=== PATIENT | female | born 1995 | race African-American/Black ===

== ENCOUNTER 2020-01-26 22:05 | Emergency (ER) | payer OTHER ==
[2020-01-26 22:14] VITALS: BP 137/82
[2020-01-26] MEDS ORDERED: KETOROLAC 60 MG/2 ML VIAL (J1885) IM ONE (22:30)
--- NOTE | 2020-01-27 07:53 | REP ---
AP pelvis: There is no pelvic fracture. Mineralization is normal. There are no calcifications or foreign bodies. These sacroiliac articulations and hip articulations are unremarkable. Impression: Negative AP pelvis. Right hip two views: Mineralization and joint space are normal. There is no femoral head deformity. There is no fracture or dislocation. No calcifications or foreign bodies. Impression: Negative right hip. Electronically Signed by Demetris Thibodeaux MD 01/27/2020 07:44 A
== END 2020-01-27 | disposition home or self-care (01) ==
LOC: M ED 22:05
DX: S70.01XA Contusion of right hip, initial encounter (principal); W00.0XXA Fall on same level due to ice and snow, initial encounter; Y92.410 Unspecified street and highway as the place of occurrence of the external cause; Y93.01 Activity, walking, marching and hiking; Y99.1 Military activity
CPT/HCPCS: 73502; 96372; 99283; J1885

== ENCOUNTER 2020-08-08 11:26 | Emergency (ER) | payer OTHER ==
[~2020-08-08] VITALS: Ht 162.6 cm; Wt 58.4 kg
[2020-08-08] MEDS ORDERED: ACET1TAB55 PO (11:32)
[2020-08-08] MEDS ORDERED: PREN1CHW PO (11:32)
[2020-08-08 12:16] LABS: BASO % 0.3 % (0.0-1.0); EOS # 0.1 10^3/uL (0.0-0.5); EOS % 1.1 % (0.0-3.0); HEMATOCRIT 32.3 % (36.0-47.0); HEMOGLOBIN 10.7 g/dl (12.0-15.5); LYMPH # 1.7 10^3/uL (1.5-5.0); LYMPH % 16.1 % (24.0-44.0); MEAN CORPUSCULAR HEMOGLOBIN 30.7 pg (27.0-33.0); MEAN CORPUSCULAR HGB CONC 33.1 g/dl (32.0-36.5); MEAN CORPUSCULAR VOLUME 92.6 fl (80.0-96.0); MONO # 0.8 10^3/uL (0.0-0.8); MONO % 7.4 % (0.0-5.0); NEUTROPHILS # 7.9 10^3/uL (1.5-8.5); PLATELET COUNT, AUTOMATED 234 10^3/uL (150-450); RED BLOOD COUNT 3.49 10^6/uL (4.00-5.40); WHITE BLOOD COUNT 10.7 10^3/uL (4.0-10.0)
[2020-08-08 12:28] LABS: APPEARANCE, URINE HAZY (CLEAR); BACTERIA, URINE AUTO NEGATIVE (NEGATIVE); BILIRUBIN, URINE AUTO NEGATIVE (NEGATIVE); BLOOD, URINE BLOOD NEGATIVE (NEGATIVE); COLOR, URINE YELLOW (YELLOW); GLUCOSE, URINE (UA) AUTO 3+ mg/dL (NEGATIVE); KETONE, URINE AUTO TRACE mg/dL (NEGATIVE); LEUKOCYTE ESTERASE, URINE AUTO NEGATIVE (NEGATIVE); MUCUS, URINE SMALL (NEGATIVE); NITRITE, URINE AUTO NEGATIVE (NEGATIVE); PROTEIN, URINE AUTO NEGATIVE (NEGATIVE); RBC, URINE AUTO 1 /HPF (0-3); SPECIFIC GRAVITY URINE AUTO 1.023 (1.002-1.035); SQUAMOUS EPITHELIAL CELL UR AU 2 /HPF (0-6); UROBILINOGEN, URINE AUTO 0.2 mg/dL (0.0-2.0); WBC, URINE AUTO 3 /HPF (0-3)
[2020-08-08 12:35] LABS: ALBUMIN 3.5 GM/DL (3.2-5.2); ALT/SGPT 32 U/L (12-78); BILIRUBIN,TOTAL 0.4 MG/DL (0.2-1.0); BLOOD UREA NITROGEN 9 MG/DL (7-18); CALCIUM LEVEL 9.2 MG/DL (8.5-10.1); CARBON DIOXIDE LEVEL 26 MEQ/L (21-32); CHLORIDE LEVEL 106 MEQ/L (98-107); CREATININE FOR GFR 0.58 MG/DL (0.55-1.30); GLOMERULAR FILTRATION RATE > 60.0 (>60); GLUCOSE, FASTING 60 MG/DL (70-100); SODIUM LEVEL 135 MEQ/L (136-145)
[2020-08-08 14:02] VITALS: BP 106/65
--- NOTE | 2020-08-08 14:16 | REPVR ---
PROCEDURE INFORMATION: Exam: US , Limited Exam date and time: 08/08/2020 1:24 PM Age: 24 years old Clinical indication: complicated by abdominal or pelvic pain; Right lower quadrant; Second trimester; Gestational age or lmp: 19 weeks; ; Additional info: 19wks with rlq pain TECHNIQUE: Imaging protocol: Real-time ultrasound of the maternal uterus with image documentation. Exam focused on the clinical indication. COMPARISON: No relevant prior studies available. FINDINGS: Gestation: Intrauterine gestation. Transverse presentation. heart rate: Heart rate measures 165 beats per Min. Placenta: Anterior grade 1 placenta. No placenta previa. Amniotic fluid: Amniotic fluid appears within normal limits. ANATOMICAL SURVEY: anatomy: Both feet were identified. Both upper extremities were identified. No hydronephrosis. Fluid within the stomach and urinary bladder. Normal-appearing choroid plexus. Lateral ventricles are normal in diameter. heart: Four-chamber heart. Umbilical cord: Three vessel umbilical cord. Normal umbilical cord insertion. BIOMETRY: Gestational age (AUA): Estimated gestational age is 19 weeks and 5 days. Estimated due date (AUA): Estimated date of delivery is December 28, 2020. Estimated weight: Estimated weight is 292 g (62%) Biparietal diameter: Biparietal diameter measures 19 weeks 6 days. Head circumference: Head circumference measures 19 weeks 4 days. Cerebellum diameter: Cerebellar diameter measures 1.9 cm. Abdominal circumference: Abdominal circumference measures 19 weeks 1 day. Humerus length: Humerus length measures 20 weeks 1 day. Femur length: Femur length measures 19 weeks 6 days. MATERNAL: Cervix: Cervix is closed, measuring 3.0 cm in length. Right adnexa: Right ovary measures 2.8 x 1.7 x 2.0 cm. Left adnexa: Left ovary was not identified, likely obscured by overlying bowel gas. IMPRESSION: 1. Single viable intrauterine gestation in transverse presentation. No abnormality is identified. 2. Estimated gestational age is 19 weeks and 5 days. Electronically signed by: Clarice Cash On 08/08/2020 14:16:05 PM
== END 2020-08-08 14:30 | disposition home or self-care (01) ==
LOC: M ED 11:26
DX: O26.892 Other specified pregnancy related conditions, second trimester (principal); Z3A.19 19 weeks gestation of pregnancy; R81 Glycosuria

== ENCOUNTER 2020-10-12 09:55 | Emergency (ER) | payer OTHER ==
[~2020-10-12] VITALS: Ht 162.6 cm; Wt 60.3 kg
[~2020-10-12 09:55] MED LIST: ACET1TAB55 PO; PREN1CHW PO
[2020-10-12] MEDS ORDERED: OMEP40CA97 PO (10:04)
[2020-10-12] MEDS ORDERED: NS 1,000 ML IV ONE (10:45)
[2020-10-12 11:09] LABS: BASO % 0.3 % (0.0-1.0); EOS # 0.1 10^3/uL (0.0-0.5); HEMATOCRIT 35.4 % (36.0-47.0); HEMOGLOBIN 11.3 g/dl (12.0-15.5); LYMPH # 1.1 10^3/uL (1.5-5.0); LYMPH % 13.4 % (24.0-44.0); MEAN CORPUSCULAR HGB CONC 31.9 g/dl (32.0-36.5); MEAN CORPUSCULAR VOLUME 93.9 fl (80.0-96.0); MONO # 0.6 10^3/uL (0.0-0.8); NEUTROPHILS # 5.8 10^3/uL (1.5-8.5); NEUTROPHILS % 73.5 % (36.0-66.0); PLATELET COUNT, AUTOMATED 227 10^3/uL (150-450); RED BLOOD COUNT 3.77 10^6/uL (4.00-5.40); WHITE BLOOD COUNT 7.9 10^3/uL (4.0-10.0)
[2020-10-12 11:45] LABS: ALBUMIN 3.2 GM/DL (3.2-5.2); ALT/SGPT 55 U/L (12-78); BILIRUBIN,DIRECT 0.2 MG/DL (0.0-0.2); BILIRUBIN,TOTAL 0.8 MG/DL (0.2-1.0); BLOOD UREA NITROGEN 10 MG/DL (7-18); CARBON DIOXIDE LEVEL 22 MEQ/L (21-32); CHLORIDE LEVEL 103 MEQ/L (98-107); CK-MB VALUE MASS < 1.0 NG/ML (<3.6); CPK CREATINE PHOSPHOKINASE 49 U/L (26-192); CREATININE FOR GFR 0.69 MG/DL (0.55-1.30); FREE T4 0.99 NG/DL (0.76-1.46); GLOMERULAR FILTRATION RATE > 60.0 (>60); GLUCOSE, FASTING 72 MG/DL (70-100); LIPASE 155 U/L (73-393); MB/CK RELATIVE INDEX 2.04 (< OR =4); POTASSIUM SERUM 3.4 MEQ/L (3.5-5.1); SODIUM LEVEL 135 MEQ/L (136-145); TOTAL PROTEIN 7.3 GM/DL (6.4-8.2); TROPONIN I < 0.02 NG/ML (< 0.10)
[2020-10-12] MEDS ORDERED: ONDANSETRON 4MG/2ML VIAL IV ONE (14:00)
[2020-10-12] MEDS ORDERED: ONDA4TAB6 PO (14:46)
[2020-10-12] MEDS ORDERED: KEFL500C17 PO (14:46)
[2020-10-12] MEDS ORDERED: POTASSIUM CHLORIDE 10 MEQ SR TABLET PO ONE (15:30)
[2020-10-12 15:35] VITALS: BP 133/73
--- NOTE | 2020-10-12 19:25 | ECGEPIP ---
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
== END 2020-10-12 15:39 | disposition home or self-care (01) ==
LOC: M ED 09:55
DX: O23.43 Unspecified infection of urinary tract in pregnancy, third trimester (principal); O99.283 Endocrine, nutritional and metabolic diseases complicating pregnancy, third trimester; R82.71 Bacteriuria; E87.6 Hypokalemia; O21.9 Vomiting of pregnancy, unspecified; O99.613 Diseases of the digestive system complicating pregnancy, third trimester; R19.7 Diarrhea, unspecified; K21.9 Gastro-esophageal reflux disease without esophagitis; Z3A.28 28 weeks gestation of pregnancy; Z86.19 Personal history of other infectious and parasitic diseases; Z79.899 Other long term (current) drug therapy
CPT/HCPCS: 80048; 80076; 81001; 82550; 82553; 83690; 84439; 84443; 84484; 85025; 87086; 87507; 93005; 96361; 96374; 99284; J2405

== ENCOUNTER 2020-11-09 10:23 | Inpatient (IN) | payer OTHER ==
[2020-11-09] VITALS (17 sets, daily range): BP systolic 100–149; BP diastolic 56–94
[~2020-11-09] VITALS: Ht 162.6 cm; Wt 60.2 kg
[~2020-11-09 10:23] MED LIST changes: +KEFL500C17 PO; +OMEP40CA97 PO; +ONDA4TAB6 PO
[2020-11-09] MEDS ORDERED: LACTATED RINGER'S 1000 ML IV STA (11:37)
[2020-11-09] MEDS ORDERED: PENICILLIN G POTASSIUM IV 5 MU in D5W MINI-BAG PLUS 100 ML IV ONE (11:45)
[2020-11-09] MEDS ORDERED: CALCIUM GLUCONATE 1,000 MG in D5W MINI-BAG PLUS 100 ML IV PRN (11:45)
[2020-11-09] MEDS ORDERED: MAG Sulf (L&D) 4 GM/100 ML 4 GM in IV 1 EA IV ONE (11:45)
[2020-11-09] MEDS ORDERED: MAGNESIUM *L&D* 4GM/100ML BAG (40MG/ML) As Ordered ONE (11:56)
[2020-11-09] MEDS: BETAMETHASONE SOLUSPAN 6MG/ML 5ML VIAL (J0702 PER 3MG) IM SCH (12:13)
[2020-11-09 12:20] LABS: BASO % 0.2 % (0.0-1.0); EOS # 0.1 10^3/uL (0.0-0.5); EOS % 1.1 % (0.0-3.0); HEMATOCRIT 34.4 % (36.0-47.0); HEMOGLOBIN 11.2 g/dl (12.0-15.5); LYMPH # 1.6 10^3/uL (1.5-5.0); LYMPH % 16.6 % (24.0-44.0); MEAN CORPUSCULAR HEMOGLOBIN 29.8 pg (27.0-33.0); MEAN CORPUSCULAR HGB CONC 32.6 g/dl (32.0-36.5); MEAN CORPUSCULAR VOLUME 91.5 fl (80.0-96.0); MONO # 0.7 10^3/uL (0.0-0.8); MONO % 7.4 % (0.0-5.0); NEUTROPHILS # 7.2 10^3/uL (1.5-8.5); NEUTROPHILS % 73.5 % (36.0-66.0); PLATELET COUNT, AUTOMATED 217 10^3/uL (150-450); RED BLOOD COUNT 3.76 10^6/uL (4.00-5.40); WHITE BLOOD COUNT 9.8 10^3/uL (4.0-10.0)
[2020-11-09] MEDS: MAG Sulf (OBGYN) 20GM/500ML 20,000 MG in IV 1 EA IV SCH ×2 (12:37→21:37)
[2020-11-09] MEDS: LR 1,000 ML IV SCH ×2 (13:05→21:37)
--- NOTE | 2020-11-09 13:08 | REP ---
INDICATION: with growth u/s at bedside. COMPARISON: 08/08/2020. TECHNIQUE: Real-time sonographic evaluation of the gravid uterus performed. FINDINGS: Estimated gestational age is32 weeks 3 days, EDC 01/01/2021. Today's measurements indicate appropriate growth. Presentation: Cephalic Placenta anterior, grade 2, without evidence of placenta previa. heart rate is recorded at 133 beats per minute. Amniotic fluid is subjectively normal. RICK equals 16.4, normal range 8.5-24.3. Biometry chart: BPD: 81 mm, 32 weeks 5 days, 54th percentile. HC: 294 mm, 32 weeks 3 days, 51st percentile AC: 283 mm, 32 weeks 2 days, 49th percentile Femur length: 62 mm, 32 weeks 1 days, 45th percentile HC to AC ratio: 1.04, normal range 4.95-1.14. Estimated weight: 1946g, 53rd percentile. SD ratio umbilical artery 2.51, normal 1.82-3.83. RI 0.60, normal 0.49-0.75. anatomy: Cranium: Previously seen Lateral Ventricles/Choroid Plexus: Previously seen Posterior Fossa/Cerebellum: Previously seen Nose/lips/profile: Previously seen Four chamber heart: Grossly normal Right ventricular outflow tract: Previously seen Left ventricular outflow tract: Previously seen Left-sided stomach: Grossly normal Kidneys: Grossly normal Bladder: Grossly normal Cord Insertion: Grossly normal 3 vessel cord: Grossly normal Spine: Not well visualized IMPRESSION: Viable single intrauterine gestation as above. <Electronically signed by Demetris Quiroz > 11/09/20 [id number]
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
[2020-11-09] MEDS ORDERED: NIFEdipine 10 MG CAP PO ONE (14:00)
--- NOTE | 2020-11-09 14:27 | IPNPDOC ---
Obstetrical Progress Note Date of Service Nov 09, 2020 Subjective No active bleeding currently, resting comfortably Objective Vital Signs Date Time Temp Pulse Resp B/P (MAP) Pulse Ox O2 Delivery O2 Flow Rate FiO2 11/09/20 11:13 98.0 110 16 Room Air Assessment Heart Rate (FHR): 130 Variability: Moderate Accelerations: Positive Decelerations: None Heart Rate Tracing: Category I Tocometer Contractions: Yes Frequency: regular, every 2-5 min. Duration: greater than 60 seconds Strength: palpated as mild, resting tone palp/soft Assessment and Plan Age: 25 : 1 Term: 0 Pre-term: 0 Abortions: 0 Livin EGA at Admission: 0 Weeks & Days 32+3 Status: Reassuring Group B Streptococcus: Unknown Anticipate: Vaginal Delivery () Additional Comments Bedside ultrasound report confirms cephalic presentation, no previa, anterior placenta, no abruption noted, RICK 16.4cm, EFW 1946gm. Dr. Houser notified of ultrasound results. Pt may eat a regular diet. Nifedipine 20mg ordered x1 po. Lr @125ml/hr, continuous efm x2, continue 2gm mag maintenance, monitor for change in or maternal status, hubbard catheter, continue GBS prophylaxis, nifedipine 20mg x1 po, plan for second betamethasone at 24hrs, may eat regular diet, consult as needed, anticipate vaginal delivery CRISTELA HAYES CNM Nov 09, 2020 14:27
[2020-11-09 14:52] LABS: CHLAMYDIA DNA AMPLIFICATION NEGATIVE (NEGATIVE); GC DNA AMPLIFICATION NEGATIVE (NEGATIVE)
[2020-11-09] MEDS: PENICILLIN G POTASSIUM IV 2.5 MU in IV 1 EA IV SCH ×2 (17:12→20:37)
--- NOTE | 2020-11-09 19:37 | ED PDOC ---
Post-Departure Follow-Up INDICATION: with growth u/s at bedside. COMPARISON: 08/08/2020. TECHNIQUE: Real-time sonographic evaluation of the gravid uterus performed. FINDINGS: Estimated gestational age is32 weeks 3 days, EDC 01/01/2021. Today's measurements indicate appropriate growth. Presentation: Cephalic Placenta anterior, grade 2, without evidence of placenta previa. heart rate is recorded at 133 beats per minute. Amniotic fluid is subjectively normal. RICK equals 16.4, normal range 8.5-24.3. Biometry chart: BPD: 81 mm, 32 weeks 5 days, 54th percentile. HC: 294 mm, 32 weeks 3 days, 51st percentile AC: 283 mm, 32 weeks 2 days, 49th percentile Femur length: 62 mm, 32 weeks 1 days, 45th percentile HC to AC ratio: 1.04, normal range 4.95-1.14. Estimated weight: 1946g, 53rd percentile. SD ratio umbilical artery 2.51, normal 1.82-3.83. RI 0.60, normal 0.49-0.75. anatomy: Cranium: Previously seen Lateral Ventricles/Choroid Plexus: Previously seen Posterior Fossa/Cerebellum: Previously seen Nose/lips/profile: Previously seen Four chamber heart: Grossly normal Right ventricular outflow tract: Previously seen Left ventricular outflow tract: Previously seen Left-sided stomach: Grossly normal Kidneys: Grossly normal Bladder: Grossly normal Cord Insertion: Grossly normal 3 vessel cord: Grossly normal Spine: Not well visualized IMPRESSION: Viable single intrauterine gestation as above. Jimbo Houser MD Nov 09, 2020 19:37
--- NOTE | 2020-11-09 19:39 | IPNPDOC ---
Obstetrical Progress Note Date of Service Nov 09, 2020 Subjective patient at 32.5 weeks admitted with [facility] after intercourse with contractions no IOL Objective Vital Signs Date Time Temp Pulse Resp B/P (MAP) Pulse Ox O2 Delivery O2 Flow Rate FiO2 11/09/20 17:30 121 16 120/72 (88) 11/09/20 14:30 98.3 11/09/20 11:13 Room Air Assessment Heart Rate (FHR): 140 Variability: Moderate Accelerations: Positive Decelerations: None Heart Rate Tracing: Category I Tocometer Contractions: Yes Frequency: irregular, greater than 10 min/apart Duration: less than 60 seconds Strength: palpated as mild Sterile Vaginal Examination Dilation: 4 cm Effacement (%): 50% Station: -2 Cervical Consistency: Soft Cervical Position: Middle Postion/Presentation: Cephalic presentation Assessment and Plan Age: 25 : 1 Term: 0 Pre-term: 0 Abortions: 0 Livin EGA at Admission: 32.5 Status: Reassuring Group B Streptococcus: Unknown Additional Comments REVIEW [id number] HOURS NO CHANGE IN CERVIX NO VAGINAL BLEEDING NO LOSS OF FLUID CONTRACTION IRREGULAR SPACED OUT WITH PROCARDIA . PLAN IS 24 HOURS MGSO4 24 HOURS ANTIBIOTICS , 24 HOURS OF STEROIDS PLAN REASSESSMENT POST 24 HOURS PLAN FOR DISCHARGE AND ROJAS OF PATIENT'S PROFILE PATIENT EXPRESSED UNDERSTANDING OF PLAN Jimbo Houser MD Nov 09, 2020 19:17
[2020-11-09] MEDS ORDERED: NIFEdipine 30 MG XL TAB PO ONE (20:00)
--- NOTE | 2020-11-09 20:36 | IPNPDOC ---
Text Note Date of Service The patient was seen on 11/09/20. NOTE 2030called re ? srom or voiding over catheter sterile speculum no pooling old blood no cervical change 08/08/2020. TECHNIQUE: Real-time sonographic evaluation of the gravid uterus performed. FINDINGS: Estimated gestational age is32 weeks 3 days, EDC 01/01/2021. Today's measurements indicate appropriate growth. Presentation: Cephalic Placenta anterior, grade 2, without evidence of placenta previa. heart rate is recorded at 133 beats per minute. Amniotic fluid is subjectively normal. RIKC equals 16.4, normal range 8.5-24.3. Biometry chart: BPD: 81 mm, 32 weeks 5 days, 54th percentile. HC: 294 mm, 32 weeks 3 days, 51st percentile AC: 283 mm, 32 weeks 2 days, 49th percentile Femur length: 62 mm, 32 weeks 1 days, 45th percentile HC to AC ratio: 1.04, normal range 4.95-1.14. Estimated weight: 1946g, 53rd percentile. SD ratio umbilical artery 2.51, normal 1.82-3.83. RI 0.60, normal 0.49-0.75. anatomy: Cranium: Previously seen Lateral Ventricles/Choroid Plexus: Previously seen Posterior Fossa/Cerebellum: Previously seen Nose/lips/profile: Previously seen Four chamber heart: Grossly normal Right ventricular outflow tract: Previously seen Left ventricular outflow tract: Previously seen Left-sided stomach: Grossly normal Kidneys: Grossly normal Bladder: Grossly normal Cord Insertion: Grossly normal 3 vessel cord: Grossly normal Spine: Not well visualized IMPRESSION: Viable single intrauterine gestation as above. <Electronically signed by Demetris Quiroz > 11/09/20 1304 DD: Demetris Quiroz MD, MD 11/09/20 1258 DT: MM 11/09/20 1304 VS,Jesus, I+O VS, Prabhjotbone, I+O Laboratory Tests 11/09/20 11:55 Vital Signs Date Time Temp Pulse Resp B/P (MAP) Pulse Ox O2 Delivery O2 Flow Rate FiO2 11/09/20 19:30 97.5 107 16 113/62 (79) 11/09/20 11:13 Room Air Jimbo Houser MD Nov 09, 2020 20:34
[2020-11-10] VITALS (17 sets, daily range): BP systolic 89–136; BP diastolic 51–86
[2020-11-10] MEDS: PENICILLIN G POTASSIUM IV 2.5 MU in IV 1 EA IV SCH ×3 (00:32→09:41)
[2020-11-10 07:29] LABS: HEMATOCRIT 37.3 % (36.0-47.0); HEMOGLOBIN 11.6 g/dl (12.0-15.5); MEAN CORPUSCULAR HEMOGLOBIN 29.1 pg (27.0-33.0); MEAN CORPUSCULAR HGB CONC 31.1 g/dl (32.0-36.5); MEAN CORPUSCULAR VOLUME 93.7 fl (80.0-96.0); PLATELET COUNT, AUTOMATED 265 10^3/uL (150-450); RED BLOOD COUNT 3.98 10^6/uL (4.00-5.40); WHITE BLOOD COUNT 14.6 10^3/uL (4.0-10.0)
[2020-11-10] MEDS: MAG Sulf (OBGYN) 20GM/500ML 20,000 MG in IV 1 EA IV SCH (07:42)
[2020-11-10] MEDS: LR 1,000 ML IV SCH (10:53)
[2020-11-10] MEDS: BETAMETHASONE SOLUSPAN 6MG/ML 5ML VIAL (J0702 PER 3MG) IM SCH (11:51)
--- NOTE | 2020-11-10 13:52 | IPNPDOC ---
Obstetrical Progress Note Date of Service Nov 10, 2020 Subjective patient is 32.6. has been stable over the last 24hrs. has stopped lito. she received 24hrs of mag and 2 doses of steroids. we discussed return precautions and was advised to be on pelvic rest until baby delivered. patient will be discharged. she has F/u next week in the clinic. Patient agrees with plan of care and expressed understanding. Objective Vital Signs Date Time Temp Pulse Resp B/P (MAP) Pulse Ox O2 Delivery O2 Flow Rate FiO2 11/10/20 11:30 105 104/65 (78) 11/10/20 06:30 97.7 16 11/09/20 11:13 Room Air VIPUL MARSHALL MD Nov 10, 2020 13:52
== END 2020-11-10 13:51 | disposition home or self-care (01) | DRG 833 ==
LOC: M LDO 10:23 → M LDI 11:34
PROVIDERS: ADMIT Registered Nurse; ATTEND Registered Nurse
DX: O46.93 Antepartum hemorrhage, unspecified, third trimester (principal); Z3A.32 32 weeks gestation of pregnancy

== ENCOUNTER 2020-11-12 10:53 | Inpatient (IN) | payer OTHER ==
[~2020-11-12] VITALS: Ht 162.6 cm; Wt 57.3 kg
[2020-11-12] VITALS (10 sets, daily range): BP systolic 119–143; BP diastolic 75–96
[~2020-11-12 10:53] MED LIST changes: +PRENATAL VITAMINS CHEWABLE TABLET PO SCH
[2020-11-12] MEDS ORDERED: LR 1,000 ML IV SCH (11:37)
[2020-11-12] MEDS ORDERED: ONDANSETRON 4MG/2ML VIAL IV PRN (11:45)
[2020-11-12] MEDS ORDERED: LR 1,000 ML IV ONE (11:45)
[2020-11-12] MEDS ORDERED: DOCUSATE SODIUM 100MG CAPSULE PO PRN (11:45)
[2020-11-12] MEDS ORDERED: diphenhydrAMINE 25MG CAP PO PRN (11:45)
[2020-11-12] MEDS ORDERED: ACETAMINOPHEN TAB 650MG DOSE (2X325MG) PO PRN ×2 (11:45→14:45)
[2020-11-12] MEDS ORDERED: AMPICILLIN SOD 2 GM in D5W MINI-BAG PLUS 100 ML IV SCH (12:00)
[2020-11-12 12:12] LABS: BASO % 0.3 % (0.0-1.0); EOS # 0.1 10^3/uL (0.0-0.5); EOS % 0.7 % (0.0-3.0); HEMATOCRIT 35.9 % (36.0-47.0); HEMOGLOBIN 11.7 g/dl (12.0-15.5); LYMPH # 1.7 10^3/uL (1.5-5.0); LYMPH % 18.8 % (24.0-44.0); MEAN CORPUSCULAR HEMOGLOBIN 29.4 pg (27.0-33.0); MEAN CORPUSCULAR HGB CONC 32.6 g/dl (32.0-36.5); MEAN CORPUSCULAR VOLUME 90.2 fl (80.0-96.0); MONO # 0.9 10^3/uL (0.0-0.8); MONO % 9.7 % (0.0-5.0); NEUTROPHILS # 6.3 10^3/uL (1.5-8.5); NEUTROPHILS % 68.1 % (36.0-66.0); PLATELET COUNT, AUTOMATED 271 10^3/uL (150-450); RED BLOOD COUNT 3.98 10^6/uL (4.00-5.40); WHITE BLOOD COUNT 9.2 10^3/uL (4.0-10.0)
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
[2020-11-12] MEDS ORDERED: ERYTHROMYCIN LACTOBIONATE INJ 250 MG in NS 250 ML IV SCH (13:00)
--- NOTE | 2020-11-12 13:44 | IPNPDOC ---
Obstetrical Progress Note Date of Service Nov 12, 2020 Subjective 25 yo at 32w6d with ELIS of 01/01/2021 admitted of PROM. She reports that she is feeling more constant vaginal pressure and she is becoming more restless. She has supportive family at the bedside. Objective Vital Signs Date Time Temp Pulse Resp B/P (MAP) Pulse Ox O2 Delivery O2 Flow Rate FiO2 11/12/20 13:03 97.8 16 11/12/20 11:54 85 124/87 (99) Assessment Heart Rate (FHR): 150 Variability: Moderate Accelerations: Present Decelerations: None Tocometer Contractions: Yes Duration: other (every 3-4 minutes) Sterile Vaginal Examination Dilation: 6 cm Effacement (%): 90% Station: +1 Cervical Consistency: Soft Cervical Position: Anterior Postion/Presentation: Cephalic presentation Assessment and Plan Age: 25 : 1 Term: 0 Pre-term: 0 Abortions: 0 Livin EGA at Admission: 32 (+6) Weeks & Days 32w6d Status: Reassuring Group B Streptococcus: Negative Anticipate: Vaginal Delivery Additional Comments Continue expectant management ANNE CHURCHILL CNM Nov 12, 2020 13:44
[2020-11-12] MEDS ORDERED: OXYTOCIN 30 UNITS IN 0.9% NaCl 500ML IV BAG (J2590) As Ordered ONE (14:19)
[2020-11-12 14:32] LABS: AMPHETAMINES URINE REFLEX NEGATIVE (NEGATIVE); BARBITURATES URINE REFLEX NEGATIVE (NEGATIVE); BENZODIAZEPINES URINE REFLEX NEGATIVE (NEGATIVE); CANNABINOIDS URINE REFLEX NEGATIVE (NEGATIVE); COCAINE METABOLITE URINE REFLE NEGATIVE (NEGATIVE); METHADONE URINE REFLEX NEGATIVE (NEGATIVE); OPIATES URINE REFLEX NEGATIVE (NEGATIVE); PHENCYCLIDINE URINE REFLEX NEGATIVE (NEGATIVE)
[2020-11-12] MEDS ORDERED: OXYTOCIN DRIP 30 UNITS in IV 1 EA IV SCH (14:45)
[2020-11-12] MEDS ORDERED: BENZOCAINE 20% HEMORRHOIDAL OINTMENT 28GM TUBE TOP PRN (14:45)
[2020-11-12] MEDS ORDERED: ACETAMINOPHEN 500 MG TAB PO PRN (14:45)
[2020-11-12] MEDS ORDERED: METHYLERGONOVINE MALEATE 0.2 MG TAB PO PRN (14:45)
[2020-11-12] MEDS ORDERED: IBUPROFEN 800 MG TAB PO PRN (14:45)
[2020-11-12] MEDS ORDERED: PROMETHAZINE 25 MG TAB PO PRN (14:45)
[2020-11-12] MEDS ORDERED: MEASLES,MUMPS,RUBELLA VACCINE INJ (MMR-II) (90707) SC SCH (14:45)
[2020-11-12] MEDS ORDERED: ANUSOL HC CREAM 30GM TOP PRN (14:45)
[2020-11-12] MEDS ORDERED: RHOGAM 300 MCG (1500 IU) INJ (J2790) IM SCH (14:45)
--- NOTE | 2020-11-12 14:58 | DNPDOC ---
[facility] Delivery Note Delivery Note Date of the procedure: 11/12/2020 Preoperative diagnosis: 1. 25 y/o at 32w6d 2. Active labor 3. GBS negative 4. O positive 5. PROM Postoperative diagnosis: 1. 25 y/o now at 32w6d 2. Active labor 3. GBS negative 4. O positive 5. PROM Procedure: Delivering Provider: Anne Freed CNM, MEJIA, ELISABET Lane Marker Installer Back-up: Phoebe Saravia DO Anesthesia: None EBL: 300 ml Specimens: Cord blood collected. Findings: Live male infant weighing 4 lb 9 oz, 2076 grams with Apgars of 9 and 9 at 1 and 5 minutes respectively. Complications: Delivery Details of the procedure: The patient presented complaining of leaking of clear fluid and was found to be PROM'd. Patient was 4 cm dilated and was then admitted to L&D. Labor progressed without Pitocin and membranes were ruptured artificially for clear fluid.. The patient progressed to fully dilated and entered the second stage of labor, at which point she began to push over an intact perineum. The head was then delivered. The nuchal cord was not noted. The rest of the was delivered. The was placed on maternal abdomen and the cord was doubly clamped and cut. Cord blood was collected and a 3 vessel cord was noted. Manual exploration of the uterus was not performed. Uterine tone was firm. Perineum was inspected and no laceration was found. Cervical exam was normal. Rectal exam was not noted. Sponge, instrument, and needle counts were correct. The patient tolerated the procedure well and is stable in recovery. Note was written and electronically signed by: Anne Freed CNM, MEJIA, ANNE SEGOVIA CNM Nov 12, 2020 14:50
[2020-11-12 16:35] LABS: HEMATOCRIT 35.8 % (36.0-47.0); HEMOGLOBIN 11.3 g/dl (12.0-15.5); MEAN CORPUSCULAR HEMOGLOBIN 29.3 pg (27.0-33.0); MEAN CORPUSCULAR HGB CONC 31.6 g/dl (32.0-36.5); MEAN CORPUSCULAR VOLUME 92.7 fl (80.0-96.0); PLATELET COUNT, AUTOMATED 243 10^3/uL (150-450); RED BLOOD COUNT 3.86 10^6/uL (4.00-5.40); WHITE BLOOD COUNT 9.5 10^3/uL (4.0-10.0)
[2020-11-12 17:08] LABS: ALT/SGPT 817 U/L (12-78); BILIRUBIN,TOTAL 0.8 MG/DL (0.2-1.0); BLOOD UREA NITROGEN 6 MG/DL (7-18); CALCIUM LEVEL 9.6 MG/DL (8.5-10.1); CARBON DIOXIDE LEVEL 25 MEQ/L (21-32); CHLORIDE LEVEL 103 MEQ/L (98-107); CREATININE FOR GFR 0.64 MG/DL (0.55-1.30); GLOMERULAR FILTRATION RATE > 60.0 (>60); GLUCOSE, FASTING 107 MG/DL (70-100); LDH LACTATE DEHYDROGENASE 405 U/L (84-246); POTASSIUM SERUM 3.8 MEQ/L (3.5-5.1); SODIUM LEVEL 135 MEQ/L (136-145); TOTAL PROTEIN 6.3 GM/DL (6.4-8.2); URIC ACID 4.2 MG/DL (2.6-6.0)
[2020-11-12] MEDS: DOCUSATE SODIUM 100MG CAPSULE PO SCH (20:02)
[2020-11-12] MEDS: IBUPROFEN 600MG TAB PO PRN (23:02)
[2020-11-13] VITALS (20 sets, daily range): BP systolic 106–152; BP diastolic 65–97
[2020-11-13] MEDS: IBUPROFEN 600MG TAB PO PRN ×2 (05:10→19:53)
[2020-11-13 08:08] LABS: HEMATOCRIT 36.4 % (36.0-47.0); HEMOGLOBIN 11.7 g/dl (12.0-15.5); MEAN CORPUSCULAR HEMOGLOBIN 29.6 pg (27.0-33.0); MEAN CORPUSCULAR HGB CONC 32.1 g/dl (32.0-36.5); MEAN CORPUSCULAR VOLUME 92.2 fl (80.0-96.0); PLATELET COUNT, AUTOMATED 258 10^3/uL (150-450); RED BLOOD COUNT 3.95 10^6/uL (4.00-5.40); WHITE BLOOD COUNT 12.4 10^3/uL (4.0-10.0)
--- NOTE | 2020-11-13 08:54 | IPNPDOC ---
Progress Note Date of Service: Nov 13, 2020 Day#: 1 Progress Note SUBJECT: 25yo PPD1 s/p at 32wk after PROM and active pre-term labor. She has been ambulating, voiding spontaneously without issue and tolerating regular diet. Breast feeding without issue. Reports lochia is less than a normal period]. Patient is ambulating well. Denies any pain. Voiding and stooling without difficulty]. She denied n/v/d, cp, sob, reyes, visual changes, abd pain, f/c, heavy vb, urinary sx. 1. 25 y/o at 32w6d 2. Active labor 3. GBS negative 4. O positive 5. PROM OBJECTIVE: VITAL SIGNS: Within normal limits, afebrile. Alert and oriented times three. Breath sounds clear to auscultation. Heart rate: Regular rate and rhythm, no murmurs, rubs or gallops. Abdomen: Fundus firm at U-2. Soft, NTTP. [Minimal] lochia. ASSESSMENT: 25yo PPD1 s/p at 32wk after PROM and active pre-term labor. She has had some mild range BPs qualifying for a diagnosis initially of GHTN but also has elevated LFTs >700 which qualifies for diagnosis of pre-eclampsia with severe features. Glucose and platelets are normal which makes HELLP and AFLD less likely (although less than prior this morning at 73 but likely this was just fasting relatively). She reportedly had elevated LFTs in but more in the range of 70s, will test for hepatitis to rule out. Will also order coags, amylase, lipase, ammonia. Will start on magnesium for pre-eclampsia for severe features and order serial pre-eclampsia labs. PLAN: 1. transfer to L+D for 24h magnesium therapy for pre-eclampsia with severe features, routine seizure precautions, strict I/O, routine Mg checks 2. holding tylenol 3. bedrest with bedside comode 4. clear liquid diet 5. serial pre-eclampsia labs 6. hepatitis ordered for history of persistent mild LFT elevations, also ordered coags, amylase, lipase, ammonia to rule out other causes 7. liver US ordered VS, I&O, 24H, Fishbone Vital Signs/I&O Vital Signs Date Time Temp Pulse Resp B/P (MAP) Pulse Ox O2 Delivery O2 Flow Rate FiO2 11/13/20 06:00 98.0 98 16 132/89 (103) 98 Room Air I&O- Last 24 Hours up to 6 AM 11/13/20 06:00 Intake Total 2100 ml Output Total 1400 ml Balance 700 ml Laboratory Data 24H LABS Laboratory Tests 2 11/12/20 11:52: Immature Granulocyte % (Auto) 2.4, Neutrophils (%) (Auto) 68.1H, Lymphocytes (%) (Auto) 18.8L, Monocytes (%) (Auto) 9.7H, Eosinophils (%) (Auto) 0.7, Basophils (%) (Auto) 0.3, Neutrophils # (Auto) 6.3, Lymphocytes # (Auto) 1.7, Monocytes # (Auto) 0.9H, Eosinophils # (Auto) 0.1, Basophils # (Auto) 0.0, Nucleated Red Blood Cells % (auto) 0.0, Syphilis Serology NONREACTIVE 11/12/20 13:06: Coronavirus (COVID-19)(PCR) NEGATIVE 11/12/20 13:44: Urine Opiates Screen NEGATIVE, Urine Methadone Screen NEGATIVE, Urine Barbiturates Screen NEGATIVE, Urine Phencyclidine Screen NEGATIVE, Urine Am phetamines Screen NEGATIVE, Urine Benzodiazepines Screen NEGATIVE, Urine Cocaine Metabolite Screen NEGATIVE, Urine Cannabinoids Screen NEGATIVE 11/12/20 16:22: Nucleated Red Blood Cells % (auto) 0.0, Anion Gap 7L, Glomerular Filtration Rate > 60.0, Uric Acid 4.2, Calcium Level 9.6, Total Bilirubin 0.8, Aspartate Amino Transf (AST/SGOT) 721H, Alanine Aminotransferase (ALT/SGPT) 817H, Alkaline Phosphatase 132H, Lactate Dehydrogenase 405H, Total Protein 6.3L, Albumin 3.0L, Albumin/Globulin Ratio 0.9L 11/12/20 17:24: Serology Scanned Report Hepatitis B Testing 11/13/20 07:53: Nucleated Red Blood Cells % (auto) 0.0 CBC/BMP Laboratory Tests 11/12/20 11:52 11/12/20 16:22 11/13/20 07:53 SILKE DRISCOLL DO Nov 13, 2020 08:54
[2020-11-13 08:55] LABS: ALT/SGPT 1064 U/L (12-78); BILIRUBIN,TOTAL 0.8 MG/DL (0.2-1.0); BLOOD UREA NITROGEN 10 MG/DL (7-18); CALCIUM LEVEL 9.2 MG/DL (8.5-10.1); CARBON DIOXIDE LEVEL 24 MEQ/L (21-32); CHLORIDE LEVEL 101 MEQ/L (98-107); CREATININE FOR GFR 0.89 MG/DL (0.55-1.30); GLOMERULAR FILTRATION RATE > 60.0 (>60); GLUCOSE, FASTING 75 MG/DL (70-100); POTASSIUM SERUM 4.5 MEQ/L (3.5-5.1); SODIUM LEVEL 135 MEQ/L (136-145); TOTAL PROTEIN 6.5 GM/DL (6.4-8.2)
[2020-11-13] MEDS ORDERED: INFLUENZA QUADRIVALENT PF VACCINE 0.5ML SYRINGE IM ONE (09:00)
[2020-11-13] MEDS ORDERED: MAG Sulf (OBGYN) 20GM/500ML 20,000 MG in IV 1 EA IV SCH ×2 (09:42→11:00)
[2020-11-13] MEDS ORDERED: LR 1,000 ML IV SCH (09:42)
[2020-11-13] MEDS ORDERED: CALCIUM GLUCONATE 1,000 MG in D5W MINI-BAG PLUS 100 ML IV PRN (09:45)
[2020-11-13] MEDS ORDERED: MAG Sulf (L&D) 4 GM/100 ML 4 GM in IV 1 EA IV ONE ×2 (09:45→10:30)
[2020-11-13] MEDS: DOCUSATE SODIUM 100MG CAPSULE PO SCH ×2 (09:55→21:15)
[2020-11-13] MEDS: PRENATAL VITAMINS CHEWABLE TABLET PO SCH (09:55)
--- NOTE | 2020-11-13 10:45 | REP ---
INDICATION: elevated LFT acutley in immediate period. COMPARISON: None. TECHNIQUE: Right upper quadrant sonography. FINDINGS: Scanning through the right upper quadrant of the abdomen demonstrates a normal sized, thin-walled gallbladder without evidence of stone or polyp. There is some hypoechoic material in the gallbladder consistent with minimal sludge. Common bile duct is normal measuring 0.2 cm in greatest diameter. There is a small hyperechoic nodule in the right lobe of the liver consistent with a benign hemangioma. This measures 0.9 x 0.8 x 0.7 cm. No other focal liver lesion is seen. Liver size is normal. No pancreatic abnormality is observed. No right renal abnormality is seen. There is no evidence of ascites. The right kidney measures 11.4 x 4.9 x 3.8 cm. IMPRESSION: 0.9 cm hemangioma in the right lobe of the liver noted incidentally. Minimal sludge in the gallbladder. Otherwise negative right upper quadrant sonography.. <Electronically signed by Antwan Dowling > 11/13/20 [id number]
[2020-11-13] MEDS: MAG Sulf (OBGYN) 20GM/500ML 20,000 MG in IV 1 EA IV SCH ×2 (11:32→20:31)
[2020-11-13 11:35] LABS: HEMATOCRIT 38.3 % (36.0-47.0); HEMOGLOBIN 12.3 g/dl (12.0-15.5); MEAN CORPUSCULAR HEMOGLOBIN 29.5 pg (27.0-33.0); MEAN CORPUSCULAR HGB CONC 32.1 g/dl (32.0-36.5); MEAN CORPUSCULAR VOLUME 91.8 fl (80.0-96.0); PLATELET COUNT, AUTOMATED 298 10^3/uL (150-450); RED BLOOD COUNT 4.17 10^6/uL (4.00-5.40); WHITE BLOOD COUNT 14.8 10^3/uL (4.0-10.0)
[2020-11-13 11:47] LABS: PARTIAL THROMBOPLASTIN TIME 25.4 SECONDS (24.2-38.5)
[2020-11-13 11:50] LABS: INR 0.92; PROTHROMBIN TIME 12.5 SECONDS (12.5-14.3)
[2020-11-13 13:08] LABS: ALBUMIN 3.1 GM/DL (3.2-5.2); ALT/SGPT 1183 U/L (12-78); AMYLASE 81 U/L (25-115); BILIRUBIN,TOTAL 0.8 MG/DL (0.2-1.0); BLOOD UREA NITROGEN 11 MG/DL (7-18); CALCIUM LEVEL 9.8 MG/DL (8.5-10.1); CARBON DIOXIDE LEVEL 26 MEQ/L (21-32); CHLORIDE LEVEL 102 MEQ/L (98-107); CREATININE FOR GFR 0.87 MG/DL (0.55-1.30); GLOMERULAR FILTRATION RATE > 60.0 (>60); GLUCOSE, FASTING 79 MG/DL (70-100); HEPATITIS A ANTIBODY IGM NEGATIVE (NEGATIVE); HEPATITIS B CORE ANTIBODY IGM NEGATIVE (NEGATIVE); HEPATITIS B SURFACE ANTIGEN NEGATIVE (NEGATIVE); HEPATITIS C VIRUS ABY INDEX 0.1 INDEX (<0.8); LIPASE 176 U/L (73-393); POTASSIUM SERUM 3.9 MEQ/L (3.5-5.1); SODIUM LEVEL 136 MEQ/L (136-145); TOTAL PROTEIN 6.6 GM/DL (6.4-8.2)
[2020-11-13 13:34] LABS: APPEARANCE, URINE HAZY (CLEAR); BACTERIA, URINE AUTO NEGATIVE (NEGATIVE); BILIRUBIN, URINE AUTO NEGATIVE (NEGATIVE); BLOOD, URINE BLOOD 3+ (NEGATIVE); COLOR, URINE YELLOW (YELLOW); GLUCOSE, URINE (UA) AUTO NEGATIVE (NEGATIVE); KETONE, URINE AUTO NEGATIVE (NEGATIVE); LEUKOCYTE ESTERASE, URINE AUTO TRACE (NEGATIVE); NITRITE, URINE AUTO NEGATIVE (NEGATIVE); PROTEIN, URINE AUTO NEGATIVE (NEGATIVE); RBC, URINE AUTO TNTC /HPF (0-3); SPECIFIC GRAVITY URINE AUTO 1.008 (1.002-1.035); SQUAMOUS EPITHELIAL CELL UR AU 6 /HPF (0-6); UROBILINOGEN, URINE AUTO 0.2 mg/dL (0.0-2.0); WBC, URINE AUTO 17 /HPF (0-3)
--- NOTE | 2020-11-13 14:22 | IPNPDOC ---
Progress Note Date of Service: Nov 13, 2020 Day#: 1 Progress Note APC 1. 25 y/o at 32w6d 2. Active labor 3. GBS negative 4. O positive 5. PROM 25yo PPD1 s/p at 32wk after PROM and active pre-term labor. She has had some mild range BPs qualifying for a diagnosis initially of GHTN but also has elevated LFTs >700 which qualifies for diagnosis of pre-eclampsia with severe features. She was started on magnesium for presumed pre-eclampsia with severe features while a work up to rule out other etiologies was started. Her LFTs were repeated and were >1000. Her Cr and WBC are slowly trending upward. Her platelets, fibrinogen, ammonia, and coags are normal. She had a UDS that was negative. Her clean catch urine protein was negative. She is hepatitis A IgM and B core IgM negative. She is hepatitis C Ab negative. She was COVID PCR negative on admission. She had a liver ultrasound that revealed an incidental hemangioma but was otherwise normal. Bile acids were ordered but this result may take up to 7d. The patient reports she is asymptomatic and has otherwise had normal vital signs and good urine output. Since starting magnesium she has tolerated a clear liquid diet and is voiding without issue in a bedside commode. Reports lochia is less than a normal period]. Patient is ambulating well. Denies any pain. Voiding and stooling without difficulty. She denied n/v/d, cp, sob, reyes, visual changes, abd pain, f/c, heavy vb, urinary sx. EXAM GEN: AAOx3, NAD CARDS: RRR PULM: CTA BL ABD: NT, ND, no R/G EXTREM: non-tender, 2+ patellar reflexes, no clonus PSYCH: normal affect and insight Plan - discussed with Dr. Thomas (critical care) about continued care here, ICU admission, and transfer. There is no availability for the patient in [facility]. With the assistance of a GI consult the patient prefers to be monitered here rather than transfer to a hospital 4-5h away. After care planning with Dr. Thomas agree that this is reasonable with close lab monitoring. If lab abnormalities begin to occur in addition to LFT trending transfer will be reconsidered. - q6h CBC, CMP, coags, fibrinogen - Mg for 24h, seizure precautions, routine Mg checks - bile acids still pending - clear liquid diet - bedrest with bedside comode - VS per Mg protocol - awaiting recommendations from BHARTAH Driscoll VS, I&O, 24H, Jesus Vital Signs/I&O Vital Signs Date Time Temp Pulse Resp B/P (MAP) Pulse Ox O2 Delivery O2 Flow Rate FiO2 11/13/20 13:30 75 18 132/87 (102) 100 11/13/20 13:00 97.3 Room Air I&O- Last 24 Hours up to 6 AM 11/13/20 06:00 Intake Total 2100 ml Output Total 1400 ml Balance 700 ml Laboratory Data 24H LABS Laboratory Tests 2 11/12/20 16:22: Nucleated Red Blood Cells % (auto) 0.0, Anion Gap 7L, Glomerular Filtration Rate > 60.0, Uric Acid 4.2, Calcium Level 9.6, Total Bilirubin 0.8, Aspartate Amino Transf (AST/SGOT) 721H, Alanine Aminotransferase (ALT/SGPT) 817H, Alkaline Phosphatase 132H, Lactate Dehydrogenase 405H, Total Protein 6.3L, Albumin 3.0L, Albumin/Globulin Ratio 0.9L 11/12/20 17:24: Serology Scanned Report Hepatitis B Testing 11/13/20 07:53: Nucleated Red Blood Cells % (auto) 0.0, Anion Gap 10, Glomerular Filtration Rate > 60.0, Calcium Level 9.2, Total Bilirubin 0.8, Aspartate Amino Transf ( AST/SGOT) 949H, Alanine Aminotransferase (ALT/SGPT) 1064H, Alkaline Phosphatase 137H, Total Protein 6.5, Albumin 3.0L, Albumin/Globulin Ratio 0.9L 11/13/20 10:00: 11/13/20 11:06: Nucleated Red Blood Cells % (auto) 0.0, Prothrombin Time 12.5, Prothromb Time International Ratio 0.92, Activated Partial Thromboplast Time 25.4, Fibrinogen 624H, Anion Gap 8, Glomerular Filtration Rate > 60.0, Calcium Level 9.8, Total Bilirubin 0.8, Aspartate Amino Transf (AST/SGOT) 1030H, Alanine Aminotransferase (ALT/SGPT) 1183H, Alkaline Phosphatase 141H, Ammonia 26, Total Protein 6.6, Albumin 3.1L, Albumin/Globulin Ratio 0.9L, Amylase Level 81, Lipase 176, Hepatitis A IgM Antibody NEGATIVE, Hepatitis B Surface Antigen NEGATIVE, Hepatitis B Core IgM Antibody NEGATIVE, Hepatitis C Antibody Index 0.1 11/13/20 13:05: Urine Color YELLOW, Urine Appearance HAZY, Urine pH 7.0, Urine Specific [place] 1.008, Urine Protein NEGATIVE, Urine Glucose (Auto)(UA) NEGATIVE, Urine Ketones (Auto) NEGATIVE, Urine Blood 3+H, Urine Nitrite NEGATIVE, Urine Bilirubin NEGATIVE, Urine Urobilinogen 0.2, Urine Leukocyte Esterase (Auto) TRACEH, Urine WBC (Auto) 17H, Urine RBC (Auto) TNTCH, Urine Hyaline Casts (Auto) 0, Urine Bacteria (Auto) NEGATIVE, Urine Squamous Epithelial Cells 6, Urine Sperm (Auto) CBC/BMP Laboratory Tests 11/12/20 16:22 11/13/20 07:53 11/13/20 11:06 SILKE DRISCOLL DO Nov 13, 2020 14:22
[2020-11-13] MEDS: LR 1,000 ML IV SCH ×2 (14:45→15:52)
--- NOTE | 2020-11-13 17:15 | CCN ---
CRITICAL CARE NOTE DATE: 11/13/2020 I was called to see this 25-year-old female, day #1. She was seen in light of marked elevation in liver function testing. She had an uncomplicated with some mild hypertension around the term. She did travel to [facility] in August but is not aware of any unusual exposures and has been well since her return. She has no history of coagulopathy or abnormal clotting in the past. Also, she reports taking no medications or nonprescribed substances prior to her admission. At bedside, she is resting comfortably in bed, conversant. Her temperature is 98.4, pulse rate 74, respirations 18, blood pressure 139/91. HEENT: She is anicteric. Her pupils are reactive and round. There is no adenopathy in her neck. No jugular venous distention or carotid bruit. Heart sounds are regular without appreciable murmur. Her breath sounds are essentially clear. Abdomen is mildly distended with bowel sounds appreciated. Extremities: There is no tremor or clonus. Her pulses are palpable times four. DIAGNOSTIC STUDIES: A liver ultrasound study was performed, showing no significant abnormalities. I reviewed the images with the radiologist. He identifies no abnormalities in the venous structures or lack of echo, though Doppler was not applied, and there was one angioma. No significant fatty infiltration of the liver parenchyma. Lab studies were reviewed. Her white blood cell count is currently 14.8, up from 12.4 this morning. Hemoglobin is 12.3, hematocrit 38.3, and platelets 298, all three improved since similar study this morning. Her electrolytes are sodium 136, potassium 3.9, chloride 102, CO2 of 26, BUN 11, creatinine 0.87, glucose 79, calcium is 9.8 with an albumin of 3.1. Bilirubin 0.8. AST has progressively increased, last evening 721, this morning 949, and currently 1030. ALT is likewise increased, yesterday 817, this morning 1064, currently 1183. Her alkaline phosphatase is only mildly elevated at 141. Coagulation studies are normal. Fibrinogen is up at 624. A toxicology screen was negative on admission. Urinalysis shows a trace of leukocyte esterase, but there was no bacteria and no protein. Serologic studies are negative for hepatitis A, B, and C. The primary problem requiring critical attention is abnormal liver function testing, most likely acute fatty liver disease of . I agree with the frequent monitoring that has been ordered with lab, and nurses will be attentive to the development of any new symptoms. I spoke with the gastroenterology service, who will be seeing her shortly. If she develops increasing symptoms or her liver enzymes continue to escalate, we will transfer her to the intensive care unit. I have spoken with the ICU team in preparation for this. At that point, close monitoring will be performed when available. A consultation with hepatology would certainly be helpful. If transfer is possible, this may be in her best interest should symptoms and liver enzymes worsen. Acute fatty liver of can be a significant and life-threatening event. We will closely monitor with you. Forty-five minutes was spent in the provision of bedside critical care and coordination, exclusive of any procedure time. %%CCLIST%%
[2020-11-13 17:57] LABS: HEMATOCRIT 35.5 % (36.0-47.0); HEMOGLOBIN 12.1 g/dl (12.0-15.5); MEAN CORPUSCULAR HEMOGLOBIN 30.7 pg (27.0-33.0); MEAN CORPUSCULAR HGB CONC 34.1 g/dl (32.0-36.5); MEAN CORPUSCULAR VOLUME 90.1 fl (80.0-96.0); PLATELET COUNT, AUTOMATED 287 10^3/uL (150-450); RED BLOOD COUNT 3.94 10^6/uL (4.00-5.40); WHITE BLOOD COUNT 12.7 10^3/uL (4.0-10.0)
[2020-11-13 18:08] LABS: INR 0.94; PROTHROMBIN TIME 12.8 SECONDS (12.5-14.3)
[2020-11-13 18:09] LABS: PARTIAL THROMBOPLASTIN TIME 24.2 SECONDS (24.2-38.5)
[2020-11-13 18:30] LABS: ALT/SGPT 1303 U/L (12-78); BILIRUBIN,TOTAL 0.5 MG/DL (0.2-1.0); BLOOD UREA NITROGEN 6 MG/DL (7-18); CALCIUM LEVEL 8.8 MG/DL (8.5-10.1); CARBON DIOXIDE LEVEL 25 MEQ/L (21-32); CHLORIDE LEVEL 103 MEQ/L (98-107); CREATININE FOR GFR 0.65 MG/DL (0.55-1.30); GLOMERULAR FILTRATION RATE > 60.0 (>60); GLUCOSE, FASTING 79 MG/DL (70-100); POTASSIUM SERUM 4.3 MEQ/L (3.5-5.1); SODIUM LEVEL 134 MEQ/L (136-145); TOTAL PROTEIN 6.6 GM/DL (6.4-8.2)
[2020-11-13 23:15] LABS: HEMATOCRIT 33.3 % (36.0-47.0); HEMOGLOBIN 10.9 g/dl (12.0-15.5); MEAN CORPUSCULAR HEMOGLOBIN 29.7 pg (27.0-33.0); MEAN CORPUSCULAR HGB CONC 32.7 g/dl (32.0-36.5); MEAN CORPUSCULAR VOLUME 90.7 fl (80.0-96.0); PLATELET COUNT, AUTOMATED 261 10^3/uL (150-450); RED BLOOD COUNT 3.67 10^6/uL (4.00-5.40); WHITE BLOOD COUNT 11.1 10^3/uL (4.0-10.0)
[2020-11-13 23:28] LABS: INR 0.96
[2020-11-13 23:33] LABS: PARTIAL THROMBOPLASTIN TIME 24.2 SECONDS (24.2-38.5)
[2020-11-13 23:35] LABS: ALBUMIN 2.7 GM/DL (3.2-5.2); ALT/SGPT 1366 U/L (12-78); BILIRUBIN,TOTAL 0.4 MG/DL (0.2-1.0); BLOOD UREA NITROGEN 6 MG/DL (7-18); CALCIUM LEVEL 7.1 MG/DL (8.5-10.1); CARBON DIOXIDE LEVEL 23 MEQ/L (21-32); CHLORIDE LEVEL 102 MEQ/L (98-107); CREATININE FOR GFR 0.58 MG/DL (0.55-1.30); GLOMERULAR FILTRATION RATE > 60.0 (>60); GLUCOSE, FASTING 77 MG/DL (70-100); POTASSIUM SERUM 4.1 MEQ/L (3.5-5.1); SODIUM LEVEL 137 MEQ/L (136-145); TOTAL PROTEIN 5.7 GM/DL (6.4-8.2)
[2020-11-14] VITALS (15 sets, daily range): BP systolic 113–141; BP diastolic 76–94
[2020-11-14] MEDS: LR 1,000 ML IV SCH (00:31)
[2020-11-14] MEDS ORDERED: METOCLOPRAMIDE INJ 10MG/2ML VIAL (J2765 PER 1) IV ONE (03:15)
[2020-11-14 05:40] LABS: HEMATOCRIT 36.3 % (36.0-47.0); MEAN CORPUSCULAR HEMOGLOBIN 30.2 pg (27.0-33.0); MEAN CORPUSCULAR HGB CONC 33.1 g/dl (32.0-36.5); MEAN CORPUSCULAR VOLUME 91.4 fl (80.0-96.0); PLATELET COUNT, AUTOMATED 265 10^3/uL (150-450); RED BLOOD COUNT 3.97 10^6/uL (4.00-5.40); WHITE BLOOD COUNT 10.1 10^3/uL (4.0-10.0)
[2020-11-14 05:52] LABS: INR 0.99; PROTHROMBIN TIME 13.3 SECONDS (12.5-14.3)
[2020-11-14 05:53] LABS: PARTIAL THROMBOPLASTIN TIME 24.7 SECONDS (24.2-38.5)
--- NOTE | 2020-11-14 06:01 | IPNPDOC ---
Progress Note Date of Service: Nov 14, 2020 Day#: 2 Progress Note 25yo PPD2 s/p at 32wk after PROM and active pre-term labor. She has had some mild range BPs qualifying for a diagnosis initially of GHTN but also has elevated LFTs >700 which qualifies for diagnosis of pre-eclampsia with severe features. She was started on magnesium for presumed pre-eclampsia with severe features while a work up to rule out other etiologies was started. Her LFTs were repeated and were >1000. Her Cr and WBC were slowly trending upward but are now normalizing. Her platelets, fibrinogen, ammonia, and coags are normal. She had a UDS that was negative. Her clean catch urine protein was negative. She is hepatitis A IgM and B core IgM negative. She is hepatitis C Ab negative. She was COVID PCR negative on admission. She had a liver ultrasound that revealed an incidental hemangioma but was otherwise normal. Bile acids were ordered but this result may take up to 7d. The patient reports she is asymptomatic and has otherwise had normal vital signs and good urine output. Since starting magnesium she has tolerated a clear liquid diet and is voiding without issue in a bedside commode. Reports lochia is less than a normal period. Patient is ambulating well. Overnight she had some RLQ cramps that resolved after getting mirilax and she reports she is constipated, she is now on mirilax and colace. Voiding without difficulty. She denied n/v/d, cp, sob, reyes, visual changes, abd pain, f/c, heavy vb, urinary sx. EXAM GEN: AAOx3, NAD CARDS: RRR PULM: CTA BL ABD: NT, ND, no R/G EXTREM: non-tender, 2+ patellar reflexes, no clonus PSYCH: normal affect and insight ASSESSMENT 25yo PPD2 s/p at 32wk after PROM and active pre-term labor. Currently with diagnosis of acute fatty liver disease of and undergoing 24h of magnesium therapy for initial diagnosis of pre-eclampsia with severe features which is due to come off at 1100 today. She remains asymptomatic and has BPs that are normotensive to mild range. Her VS are otherwise normal. Her LFTs continue to trend upwards but at a less accelerated rate. Her coags and renal function labs remain normal. She had a liver US today that was grossly normal. Plan - continued close monitoring of labs with Dr. Thomas (critical care), still pending recommendations from GI - If lab abnormalities begin to occur in addition to LFT trending transfer will be reconsidered - q6h CBC, CMP, coags, fibrinogen - Mg for 24h, seizure precautions, routine Mg checks - Mg to come off at 1100 - bile acids still pending - clear liquid diet - bedrest with bedside comode - VS per Mg protocol - discussed contraception today patient desires nexplanon in 6wk [place] VS, I&O, 24H, Fishbone Vital Signs/I&O Vital Signs Date Time Temp Pulse Resp B/P (MAP) Pulse Ox O2 Delivery O2 Flow Rate FiO2 11/14/20 05:30 97.6 88 16 131/91 (104) 100 11/13/20 13:00 Room Air I&O- Last 24 Hours up to 6 AM 11/14/20 06:00 Intake Total 4125 ml Output Total 3550 ml Balance 575 ml Laboratory Data 24H LABS Laboratory Tests 2 11/13/20 07:53: Nucleated Red Blood Cells % (auto) 0.0, Anion Gap 10, Glomerular Filtration Rate > 60.0, Calcium Level 9.2, Total Bilirubin 0.8, Aspartate Amino Transf (AST/SGOT) 949H, Alanine Aminotransferase (ALT/SGPT) 1064H, Alkaline Phosphatase 137H, Total Protein 6.5, Albumin 3.0L, Albumin/Globulin Ratio 0.9L 11/13/20 10:00: 11/13/20 11:06: Nucleated Red Blood Cells % (auto) 0.0, Anion Gap 8, Glomerular Filtration Rate > 60.0, Calcium Level 9.8, Total Bilirubin 0.8, Aspartate Amino Transf (AST/SGOT) 1030H, Alanine Aminotransferase (ALT/SGPT) 1183H, Alkaline Phosphatase 141H, Total Protein 6.6, Albumin 3.1L, Albumin/Globulin Ratio 0.9L, Prothrombin Time 12.5, Prothromb Time International Ratio 0.92, Activated Partial Thromboplast Time 25.4, Fibrinogen 624H, Ammonia 26, Amylase Level 81, Lipase 176, Hepatitis A IgM Antibody NEGATIVE, Hepatitis B Surface Antigen NEGATIVE, Hepatitis B Core IgM Antibody NEGATIVE, Hepatitis C Antibody Index 0.1 11/13/20 13:05: Urine Color YELLOW, Urine Appearance HAZY, Urine pH 7.0, Urine Specific [place] 1.008, Urine Protein NEGATIVE, Urine Glucose (Auto)(UA) NEGATIVE, Urine Ketones (Auto) NEGATIVE, Urine Blood 3+H, Urine Nitrite NEGATIVE, Urine Bilirubin NEG ATIVE, Urine Urobilinogen 0.2, Urine Leukocyte Esterase (Auto) TRACEH, Urine WBC (Auto) 17H, Urine RBC (Auto) TNTCH, Urine Hyaline Casts (Auto) 0, Urine Bacteria (Auto) NEGATIVE, Urine Squamous Epithelial Cells 6, Urine Sperm (Auto) 11/13/20 17:37: Nucleated Red Blood Cells % (auto) 0.0, Prothrombin Time 12.8, Prothromb Time International Ratio 0.94, Activated Partial Thromboplast Time 24.2L, Fibrinogen 572H, Anion Gap 6L, Glomerular Filtration Rate > 60.0, Calcium Level 8.8, Total Bilirubin 0.5, Aspartate Amino Transf (AST/SGOT) 1106H, Alanine Aminotransferase (ALT/SGPT) 1303H, Alkaline Phosphatase 143H, Total Protein 6.6, Albumin 3.0L, Albumin/Globulin Ratio 0.8L 11/13/20 22:47: Nucleated Red Blood Cells % (auto) 0.0, Prothrombin Time 13.0, Prothromb Time International Ratio 0.96, Activated Partial Thromboplast Time 24.2L, Fibrinogen 522H, Anion Gap 12, Glomerular Filtration Rate > 60.0, Calcium Level 7.1#L, Total Bilirubin 0.4, Aspartate Amino Transf (AST/SGOT) 1178H, Alanine Aminotransferase (ALT/SGPT) 1366H, Alkaline Phosphatase 130H, Total Protein 5.7L, Albumin 2.7L, Albumin/Globulin Ratio 0.9L 11/14/20 05:20: Nucleated Red Blood Cells % (auto) 0.0, Prothrombin Time 13.3, Prothromb Time International Ratio 0.99, Activated Partial Thromboplast Time 24.7L, Fibrinogen 528H CBC/BMP Laboratory Tests 11/13/20 07:53 11/13/20 11:06 11/13/20 17:37 11/13/20 22:47 11/14/20 05:20 SILKE DRISCOLL DO Nov 14, 2020 06:01
[2020-11-14 06:18] LABS: ALBUMIN 2.9 GM/DL (3.2-5.2); ALT/SGPT 1623 U/L (12-78); BILIRUBIN,TOTAL 0.4 MG/DL (0.2-1.0); BLOOD UREA NITROGEN 5 MG/DL (7-18); CALCIUM LEVEL 6.7 MG/DL (8.5-10.1); CARBON DIOXIDE LEVEL 26 MEQ/L (21-32); CHLORIDE LEVEL 100 MEQ/L (98-107); CREATININE FOR GFR 0.71 MG/DL (0.55-1.30); GLOMERULAR FILTRATION RATE > 60.0 (>60); GLUCOSE, FASTING 82 MG/DL (70-100); MAGNESIUM LEVEL 7.3 MG/DL (1.8-2.4); POTASSIUM SERUM 4.3 MEQ/L (3.5-5.1); SODIUM LEVEL 136 MEQ/L (136-145); TOTAL PROTEIN 6.3 GM/DL (6.4-8.2)
[2020-11-14] MEDS: MAG Sulf (OBGYN) 20GM/500ML 20,000 MG in IV 1 EA IV SCH (06:46)
[2020-11-14] MEDS: DOCUSATE SODIUM 100MG CAPSULE PO SCH ×2 (08:41→20:02)
[2020-11-14] MEDS: MIRALAX *UNIT DOSE* 17GM PACKET PO SCH (08:41)
[2020-11-14] MEDS: PRENATAL VITAMINS CHEWABLE TABLET PO SCH (08:41)
[2020-11-14] MEDS ORDERED: INFLUENZA QUADRIVALENT PF VACCINE 0.5ML SYRINGE IM ONE (09:00)
[2020-11-14] MEDS ORDERED: METOCLOPRAMIDE INJ 10MG/2ML VIAL (J2765 PER 1) IV PRN (10:45)
[2020-11-14 11:32] LABS: HEMOGLOBIN 12.1 g/dl (12.0-15.5); MEAN CORPUSCULAR HGB CONC 32.7 g/dl (32.0-36.5); MEAN CORPUSCULAR VOLUME 91.8 fl (80.0-96.0); PLATELET COUNT, AUTOMATED 290 10^3/uL (150-450); RED BLOOD COUNT 4.03 10^6/uL (4.00-5.40); WHITE BLOOD COUNT 8.9 10^3/uL (4.0-10.0)
[2020-11-14 11:45] LABS: INR 0.88; PROTHROMBIN TIME 12.1 SECONDS (12.5-14.3)
[2020-11-14 11:57] LABS: PARTIAL THROMBOPLASTIN TIME 22.9 SECONDS (24.2-38.5)
[2020-11-14 12:10] LABS: ALT/SGPT 1765 U/L (12-78); BILIRUBIN,TOTAL 0.4 MG/DL (0.2-1.0); BLOOD UREA NITROGEN 5 MG/DL (7-18); CALCIUM LEVEL 7.3 MG/DL (8.5-10.1); CARBON DIOXIDE LEVEL 30 MEQ/L (21-32); CHLORIDE LEVEL 102 MEQ/L (98-107); CREATININE FOR GFR 0.64 MG/DL (0.55-1.30); GLOMERULAR FILTRATION RATE > 60.0 (>60); GLUCOSE, FASTING 74 MG/DL (70-100); POTASSIUM SERUM 4.3 MEQ/L (3.5-5.1); SODIUM LEVEL 135 MEQ/L (136-145); TOTAL PROTEIN 6.6 GM/DL (6.4-8.2)
--- NOTE | 2020-11-14 13:54 | IPNPDOC ---
Progress Note Date of Service: Nov 14, 2020 Progress Note Patient seen this afternoon. Ruby reports feeling well. She denies any abdominal or pelvic pain. She had some nausea earlier but this resolved. She denies any dizziness or lightheadedness. Her lochia is minimal. She is very hungry and desires to eat. Vitals - VSS, afebrile, normal to mildly elevated BPs, HR 90s-100s General - Sitting up in bed, pleasant and conversant, NAD Abdomen - Fundus firm at U-2. No fundal tenderness. Abdomen soft. No rigidity or guarding. No tenderness to palpation in RUQ. Extremities - No edema Latest labs reveal normal coags, elevated fibrinogen, glucose 70s-80s, stable H/H, stable platelets, stable creatinine. AST/ALT continue to trend upward, but not as much of an increase as the last level. See full lab results below. Ruby remains clinically well appearing. She has completed 24 hours of magnesium. HELLP Syndrome and Acute Fatty Liver of remain highest on the differential, with fatty liver appearing to be most likely. It is concerning that her LFTs continue to rise, despite her otherwise normal and/or stable lab values. She will need to be monitored very closely over the next 12-24 hours. If she develops any concerning symptoms, i.e., bleeding, abdominal pain, significant nausea/vomiting, or altered mental status, then she will need to be transferred to a different facility. In addition, should she develop hypoglycemia, coagulopathy, or continued worsening of her LFTs, then she will need to be transferred as well. Preferably to a facility with hepatology available. For now will continue with observation and serial labs. I explained all of this in detail to Ruby and she appears to understand. All questions were answered. Much appreciate Critical Care and GI input with Ms. Decker. Vickie Donohue, 11/13/20 17:37: White Blood Count 12.7H, Red Blood Count 3.94L, Hemoglobin 12.1, Hematocrit 35.5L, Mean Corpuscular Volume 90.1, Mean Corpuscular Hemoglobin 30.7, Mean Corpuscular Hemoglobin Concent 34.1, Red Cell Distribution Width 12.2, Platelet Count 287, Nucleated Red Blood Cells % (auto) 0.0, Prothrombin Time 12.8, Prothromb Time International Ratio 0.94, Activated Partial Thromboplast Time 24.2L, Fibrinogen 572H, Sodium Level 134L, Potassium Level 4.3, Chloride Level 103, Carbon Dioxide Level 25, Anion Gap 6L, Blood Urea Nitrogen 6L, Creatinine 0.65, Glomerular Filtration Rate > 60.0, Fasting Glucose 79, Calcium Level 8.8, Total Bilirubin 0.5, Aspartate Amino Transf (AST/SGOT) 1106H, Alanine Aminotransferase (ALT/SGPT) 1303H, Alkaline Phosphatase 143H, Total Protein 6.6, Albumin 3.0L, Albumin/Globulin Ratio 0.8L 11/13/20 22:47: White Blood Count 11.1H, Red Blood Count 3.67L, Hemoglobin 10.9L, Hematocrit 33.3L, Mean Corpuscular Volume 90.7, Mean Corpuscular Hemoglobin 29.7, Mean C orpuscular Hemoglobin Concent 32.7, Red Cell Distribution Width 12.1, Platelet Count 261, Nucleated Red Blood Cells % (auto) 0.0, Prothrombin Time 13.0, Prothromb Time International Ratio 0.96, Activated Partial Thromboplast Time 24.2L, Fibrinogen 522H, Sodium Level 137, Potassium Level 4.1, Chloride Level 102, Carbon Dioxide Level 23, Anion Gap 12, Blood Urea Nitrogen 6L, Creatinine 0.58, Glomerular Filtration Rate > 60.0, Fasting Glucose 77, Calcium Level 7.1#L, Total Bilirubin 0.4, Aspartate Amino Transf (AST/SGOT) 1178H, Alanine Aminotransferase (ALT/SGPT) 1366H, Alkaline Phosphatase 130H, Total Protein 5.7L, Albumin 2.7L, Albumin/Globulin Ratio 0.9L 11/14/20 05:20: White Blood Count 10.1H, Red Blood Count 3.97L, Hemoglobin 12.0, Hematocrit 36.3, Mean Corpuscular Volume 91.4, Mean Corpuscular Hemoglobin 30.2, Mean Corpuscular Hemoglobin Concent 33.1, Red Cell Distribution Width 12.0, Platelet Count 265, Nucleated Red Blood Cells % (auto) 0.0, Prothrombin Time 13.3, Prothromb Time International Ratio 0.99, Activated Partial Thromboplast Time 24.7L, Fibrinogen 528H, Sodium Level 136, Potassium Level 4.3, Chloride Level 100, Carbon Dioxide Level 26, Anion Gap 10, Blood Urea Nitrogen 5L, Creatinine 0.71, Glomerular Filtration Rate > 60.0, Fasting Glucose 82, Calcium Level 6.7L, Total Bilirubin 0.4, Aspartate Amino Transf (AST/SGOT) 1384H, Alanine Aminotran sferase (ALT/SGPT) 1623H, Alkaline Phosphatase 134H, Total Protein 6.3L, Albumin 2.9L, Albumin/Globulin Ratio 0.9L, Magnesium Level 7.3*H 11/14/20 11:07: White Blood Count 8.9, Red Blood Count 4.03, Hemoglobin 12.1, Hematocrit 37.0, Mean Corpuscular Volume 91.8, Mean Corpuscular Hemoglobin 30.0, Mean Corpuscular Hemoglobin Concent 32.7, Red Cell Distribution Width 12.1, Platelet Count 290, Nucleated Red Blood Cells % (auto) 0.0, Prothrombin Time 12.1, Prothromb Time International Ratio 0.88, Activated Partial Thromboplast Time 22.9L, Fibrinogen 558H, Sodium Level 135L, Potassium Level 4.3, Chloride Level 102, Carbon Dioxide Level 30, Anion Gap 3L, Blood Urea Nitrogen 5L, Creatinine 0.64, Glomerular Filtration Rate > 60.0, Fasting Glucose 74, Calcium Level 7.3L, Total Bilirubin 0.4, Aspartate Amino Transf (AST/SGOT) 1445H, Alanine Aminotransferase (ALT/SGPT) 1765H, Alkaline Phosphatase 146H, Total Protein 6.6, Albumin 3.0L, Albumin/Globulin Ratio 0.8L 11/14/20 11:08: Hepatitis E IgM Antibody [Pending], Herpes Simplex Virus I IgM Antibody [Pe nding], Herpes Simplex Virus II IgM Ab [Pending], HSV I DNA Quant (PCR) [Pending], HSV II DNA Quant (PCR) [Pending] 11/13/20 17:37 11/13/20 22:47 11/14/20 05:20 11/14/20 11:07 VS, I&O, 24H, Fishbone Vital Signs/I&O Vital Signs Date Time Temp Pulse Resp B/P (MAP) Pulse Ox O2 Delivery O2 Flow Rate FiO2 11/14/20 11:20 98.0 82 16 137/91 (106) 100 Room Air I&O- Last 24 Hours up to 6 AM 11/14/20 06:00 Intake Total 4250 ml Output Total 3550 ml Balance 700 ml Laboratory Data 24H LABS Laboratory Tests 2 11/13/20 17:37: Nucleated Red Blood Cells % (auto) 0.0, Prothrombin Time 12.8, Prothromb Time International Ratio 0.94, Activated Partial Thromboplast Time 24.2L, Fibrinogen 572H, Anion Gap 6L, Glomerular Filtration Rate > 60.0, Calcium Level 8.8, Total Bilirubin 0.5, Aspartate Amino Transf (AST/SGOT) 1106H, Alanine Aminotransferase (ALT/SGPT) 1303H, Alkaline Phosphatase 143H, Total Protein 6.6, Albumin 3.0L, Albumin/Globulin Ratio 0.8L 11/13/20 22:47: Nucleated Red Blood Cells % (auto) 0.0, Prothrombin Time 13.0, Prothromb Time International Ratio 0.96, Activated Partial Thromboplast Time 24.2L, Fibrinogen 522H, Anion Gap 12, Glomerular Filtration Rate > 60.0, Calcium Level 7.1#L, Tota l Bilirubin 0.4, Aspartate Amino Transf (AST/SGOT) 1178H, Alanine Aminotransferase (ALT/SGPT) 1366H, Alkaline Phosphatase 130H, Total Protein 5.7L, Albumin 2.7L, Albumin/Globulin Ratio 0.9L 11/14/20 05:20: Nucleated Red Blood Cells % (auto) 0.0, Prothrombin Time 13.3, Prothromb Time International Ratio 0.99, Activated Partial Thromboplast Time 24.7L, Fibrinogen 528H, Anion Gap 10, Glomerular Filtration Rate > 60.0, Calcium Level 6.7L, Total Bilirubin 0.4, Aspartate Amino Transf (AST/SGOT) 1384H, Alanine Aminotransferase (ALT/SGPT) 1623H, Alkaline Phosphatase 134H, Total Protein 6.3L, Albumin 2.9L, Albumin/Globulin Ratio 0.9L, Magnesium Level 7.3*H 11/14/20 11:07: Nucleated Red Blood Cells % (auto) 0.0, Prothrombin Time 12.1, Prothromb Time International Ratio 0.88, Activated Partial Thromboplast Time 22.9L, Fibrinogen 558H, Anion Gap 3L, Glomerular Filtration Rate > 60.0, Calcium Level 7.3L, Total Bilirubin 0.4, Aspartate Amino Transf (AST/SGOT) 1445H, Alanine Aminotransferase (ALT/SGPT) 1765H, Alkaline Phosphatase 146H, Total Protein 6.6, Albumin 3.0L, Albumin/Globulin Ratio 0.8L 11/14/20 11:08: CBC/BMP Laboratory Tests 11/13/20 17:37 11/13/20 22:47 11/14/20 05:20 11/14/20 11:07 VICKIE DONOHUE DO Nov 14, 2020 13:54
[2020-11-14 17:23] LABS: HEMATOCRIT 37.6 % (36.0-47.0); HEMOGLOBIN 12.2 g/dl (12.0-15.5); MEAN CORPUSCULAR HEMOGLOBIN 29.8 pg (27.0-33.0); MEAN CORPUSCULAR HGB CONC 32.4 g/dl (32.0-36.5); MEAN CORPUSCULAR VOLUME 91.7 fl (80.0-96.0); PLATELET COUNT, AUTOMATED 347 10^3/uL (150-450); WHITE BLOOD COUNT 8.1 10^3/uL (4.0-10.0)
[2020-11-14 17:35] LABS: INR 0.84; PROTHROMBIN TIME 11.7 SECONDS (12.5-14.3)
[2020-11-14 17:36] LABS: PARTIAL THROMBOPLASTIN TIME 24.6 SECONDS (24.2-38.5)
[2020-11-14 18:10] LABS: ALT/SGPT 1755 U/L (12-78); BILIRUBIN,TOTAL 0.4 MG/DL (0.2-1.0); BLOOD UREA NITROGEN 7 MG/DL (7-18); CALCIUM LEVEL 7.6 MG/DL (8.5-10.1); CARBON DIOXIDE LEVEL 28 MEQ/L (21-32); CHLORIDE LEVEL 103 MEQ/L (98-107); CREATININE FOR GFR 0.68 MG/DL (0.55-1.30); GLOMERULAR FILTRATION RATE > 60.0 (>60); GLUCOSE, FASTING 76 MG/DL (70-100); POTASSIUM SERUM 5.2 MEQ/L (3.5-5.1); SODIUM LEVEL 136 MEQ/L (136-145); TOTAL PROTEIN 6.5 GM/DL (6.4-8.2)
--- NOTE | 2020-11-14 18:39 | CR.PDOC ---
General Date of Consultation: Nov 14, 2020 Referring Provider: LOWELL DRISCOLL DO Attending Physician: KRISTOPHER AHUJA MD Consultation Primary physician/ hospitalist: - Dr. Lowell Driscoll Reason for consult: - Abnormal liver tests HPI: 25-year-old female patient with no chronic medical comorbidities was admitted post (delivery date 11/12/2020, PROM at 32 w 6d, first ) for abnormal liver tests. GI was consulted for further evaluation. Patient at the time of examination, was comfortable, alert and awake, oriented 3, and denies any uncontrolled GI symptoms. On further questioning, patient reports having excessive nausea and vomiting during her entire , with symptoms worsening in August with acid reflux and took omeprazole for relief. Patient also reports travel to [place] in August, but denies any sick contacts, fever, jaundice, diarrhea. Patient states that around 2 weeks ago, she had a fainting spell (after having an argument), and the episode lasted for around 2 minutes, and had no injuries. Patient denies any IVDA, heavy alcohol use, OTC medication use, and high risk behavior. Patient does report not having bowel movements since the last Thursday, but able to pass gas. Pertinent negative GI symptoms: Currently patient denies any active GI symptoms and specifically denies fever, sick contacts, diarrhea, abdominal pain, loss of appetite, early satiety or unintentional weight loss. No history of hematemesis, melena or hematochezia. Review of Systems: GI: as stated above CVS: No chest pain, No palpitations, No leg swelling. RS: No Shortness of breath, No Wheezing, no cough SPORTS ADMINISTRATOR: No dizziness, No motor weakness, No sensory problems Hematology: No bruising, No gum bleeding, Musculoskeletal: No joint pain, ambulating well. Skin: No rash : No hematuria, No burning sensation of the urine ENT: No ear discharge/ pain, No dysphagia. Eyes: No photophobia. Jaundice Home medications: reviewed. Medical h/o: As above. Surgical h/o: None on abdomen. Social h/o: Alcohol: -- Social prior to , smoking: denies , IVDA/ drugs: denies. Family h/o of GI cancers - None Prior Endoscopies: None Prior GI evaluations: - None Exam: Vitals: reviewed General: Alert and oriented x 3, not in distress HEENT: NO pallor, no icterus. Normal oropharynx, NO cervical lymph nodes. Chest: symmetric with bilateral clear air entry, CVS: S1, S2 heard, normal, no murmurs . Abdomen: non-distended, no surgical scars, soft, non-tender, no palpable masses, normal bowel sounds heard. Rectal exam: Patient refused / Deferred at this time. Extremities: no pedal edema, pulses palpable. SPORTS ADMINISTRATOR: no focal motor or sensory deficits. Moves all extremities Skin: no rash. Labs: reviewed. Imaging: reviewed. Impression: -- 25 year old female patient with PROM at 32w6d, (first ), vaginal delivery 2 days ago, noted with abnormal liver tests with severe transaminitis and normal bilirubin and prior hyperemesis symptoms, borderline elevated blood pressure ( treated as possible pre-ecclampsia), normal platelets, recently fainting spell around 2 weeks ago, no fever, normal mental status and n o coagulopathy and normal renal function. Possible differentials include ischmic hepatopathy ( elevated LDH) vs Acute fatty liver of vs Hyperemesis related vs rule out atypical viral hepatitis. -- Constipation -- likely functional. Recommendations: - Patient educated about the test results, possible differential diagnoses and All questions answered. - Diet as tolerated. Consider miralax as needed for constipation - Close monitoring of clinical symptoms, mental status, urine output, abdominal pain, jaundice and bleeding. - Will obtain Liver panel, finger stick glucose levels every 6-8 hours for next 48 hours. - Ordered labs for HEV, HSV. ( bile acid levels are already ordered). - [place]bt[place] [facility] testing. ( [facility] [place] To check with lab if they can do the 'send out lab' for this genetic testing. Also recommend the same testing for the child and as well. Patient's child to be monitored closely for hypoglycemia. - Monitor CBC, INR/ PTT, BMP, ammonia level every 12- 24 hours. - Patient is recommended to be transferred to a tertiary hepatology center when bed is available for close monitoring. - Discussed with patient and her about the risks and benfits of monitoring here until the above. ( also reviewed the different options of transfer and risks and alternatives considering the COVID pandemic). Patient and her verbalized understanding and agreed with current plan. Plan of care discussed with patient and primary team. Patient verbalized understanding and agreed with the plan. Vital Signs/I&O Vital Signs Date Time Temp Pulse Resp B/P (MAP) Pulse Ox O2 Delivery O2 Flow Rate FiO2 11/14/20 17:48 98.4 89 18 137/94 (108) 98 Room Air I&O- Last 24 Hours up to 6 AM 11/14/20 06:00 Intake Total 4250 ml Output Total 3550 ml Balance 700 ml Laboratory Data Labs 24H Laboratory Tests 2 11/13/20 22:47: Nucleated Red Blood Cells % (auto) 0.0, Prothrombin Time 13.0, Prothromb Time International Ratio 0.96, Activated Partial Thromboplast Time 24.2L, Fibrinogen 522H, Anion Gap 12, Glomerular Filtration Rate > 60.0, Calcium Level 7.1#L, Total Bilirubin 0.4, Aspartate Amino Transf (AST/SGOT) 1178H, Alanine Aminotransferase (ALT/SGPT) 1366H, Alkaline Phosphatase 130H, Total Protein 5.7L, Albumin 2.7L, Albumin/Globulin Ratio 0.9L 11/14/20 05:20: Nucleated Red Blood Cells % (auto) 0.0, Prothrombin Time 13.3, Prothromb Time International Ratio 0.99, Activated Partial Thromboplast Time 24.7L, Fibrinogen 528H, Anion Gap 10, Glomerular Filtration Rate > 60.0, Calcium Level 6.7L, Total Bilirubin 0.4, Aspartate Amino Transf (AST/SGOT) 1384H, Alanine Aminotransferase (ALT/SGPT) 1623H, Alkaline Phosphatase 134H, Total Protein 6.3L, Albumin 2.9L, Albumin/Globulin Ratio 0.9L, Magnesium Level 7.3*H 11/14/20 11:07: Nucleated Red Blood Cells % (auto) 0.0, Prothrombin Time 12.1, Prothromb Time International Ratio 0.88, Activated Partial Thromboplast Time 22.9L, Fibrinogen 558H, Anion Gap 3L, Glomerular Filtration Rate > 60.0, Calcium Level 7.3L, Total Bilirubin 0.4, Aspartate Amino Transf (AST/SGOT) 1445H, Alanine Aminotransferase (ALT/SGPT) 1765H, Alkaline Phosphatase 146H, Total Protein 6.6, Albumin 3.0L, Albumin/Globulin Ratio 0.8L 11/14/20 11:08: 11/14/20 16:58: Nucleated Red Blood Cells % (auto) 0.0, Prothrombin Time 11.7L, Prothromb Time International Ratio 0.84, Activated Partial Thromboplast Time 24.6L, Fibrinogen 505H, Anion Gap 5L, Glomerular Filtration Rate > 60.0, Calcium Level 7.6L, Total Bilirubin 0.4, Aspartate Amino Transf (AST/SGOT) 1446H, Alanine Aminotransferase (ALT/SGPT) 1755H, Alkaline Phosphatase 141H, Ammonia 16, Total Protein 6.5, Albumin 3.0L, Albumin/Globulin Ratio 0.9L CBC/BMP Laboratory Tests 11/13/20 22:47 11/14/20 05:20 11/14/20 11:07 11/14/20 16:58 Allergies Coded Allergies: No Known Allergies (Unverified , 08/08/20) Home Medications Scheduled Omeprazole (Omeprazole) 40 Mg Capsule.dr, 1 CAP PO DAILY for 30 Days, #30 (Repor di) Comb No.42/Folic Acid (Prena1 Chew Tablet) 1.4 Mg Tab.ch.bph, 1 TAB PO DAILY for 30 Days, #30 (Reported) Scheduled PRN Ondansetron (Ondansetron Odt) 4 Mg Tab.rapdis, 1 TAB PO Q6-8HP PRN for nausea/vomiting, #16 KRISTOPHER AHUJA MD Nov 14, 2020 18:39
[2020-11-14] MEDS: IBUPROFEN 600MG TAB PO PRN (19:44)
[2020-11-15] VITALS (7 sets, daily range): BP systolic 122–148; BP diastolic 84–98
[2020-11-15 00:18] LABS: HEMATOCRIT 32.3 % (36.0-47.0); HEMOGLOBIN 10.4 g/dl (12.0-15.5); MEAN CORPUSCULAR HEMOGLOBIN 29.5 pg (27.0-33.0); MEAN CORPUSCULAR HGB CONC 32.2 g/dl (32.0-36.5); MEAN CORPUSCULAR VOLUME 91.8 fl (80.0-96.0); PLATELET COUNT, AUTOMATED 275 10^3/uL (150-450); RED BLOOD COUNT 3.52 10^6/uL (4.00-5.40); WHITE BLOOD COUNT 9.5 10^3/uL (4.0-10.0)
[2020-11-15 00:22] LABS: INR 0.89; PROTHROMBIN TIME 12.2 SECONDS (12.5-14.3)
[2020-11-15 00:23] LABS: PARTIAL THROMBOPLASTIN TIME 25.3 SECONDS (24.2-38.5)
[2020-11-15 01:29] LABS: ALBUMIN 2.7 GM/DL (3.2-5.2); ALT/SGPT 1468 U/L (12-78); BILIRUBIN,TOTAL 0.3 MG/DL (0.2-1.0); BLOOD UREA NITROGEN 11 MG/DL (7-18); CARBON DIOXIDE LEVEL 28 MEQ/L (21-32); CHLORIDE LEVEL 104 MEQ/L (98-107); CREATININE FOR GFR 0.68 MG/DL (0.55-1.30); GLOMERULAR FILTRATION RATE > 60.0 (>60); GLUCOSE, FASTING 74 MG/DL (70-100); POTASSIUM SERUM 4.7 MEQ/L (3.5-5.1); SODIUM LEVEL 140 MEQ/L (136-145); TOTAL PROTEIN 5.9 GM/DL (6.4-8.2)
[2020-11-15 07:19] LABS: HEMATOCRIT 33.4 % (36.0-47.0); HEMOGLOBIN 10.4 g/dl (12.0-15.5); MEAN CORPUSCULAR HGB CONC 31.1 g/dl (32.0-36.5); PLATELET COUNT, AUTOMATED 272 10^3/uL (150-450); RED BLOOD COUNT 3.59 10^6/uL (4.00-5.40); WHITE BLOOD COUNT 7.6 10^3/uL (4.0-10.0)
--- NOTE | 2020-11-15 07:24 | IPNPDOC ---
Progress Note Date of Service: Nov 15, 2020 Progress Note Patient seen this AM Ruby reports feeling well. She denies any abdominal or pelvic pain. She denies any dizziness or lightheadedness. Her lochia is minimal. She is tolerating a regular diet without issues. She denies any headaches, RUQ pain, visual changes, or SOB. She is ambulating and voiding without issues. Vitals - VSS, afebrile, normal to mildly elevated BPs, Non tachycardic General - Sitting up in bed, pleasant and conversant, NAD Abdomen - Fundus firm at U-2. No fundal tenderness. Abdomen soft. No rigidity or guarding. No tenderness to palpation in RUQ. Extremities - No edema Latest labs reveal normal coags, glucose 70s-80s, stable H/H, stable platelets, stable creatinine. AST/ALT are now trending downwards. No other lab abnorma lities. Ruby remains clinically well appearing and her labwork appears to be trending in the right direction. She completed 24 hours of magnesium yesterday. Pre eclampsia with severe features / HELLP Syndrome along with Acute Fatty Liver of remain highest on her differential diagnosis, with acute fatty liver appearing to be most likely. I am encouraged by her plateau and now downtrending of LFTs. And she remains clinically well with no symptoms. I am cautiously optimistic at this time that she will not require transfer to another facility. Will need to continue with close observation. Will be able to decrease frequency of lab testing to Q12 - Q18 hours. All patient questions answered. Much appreciate Critical Care and GI input with Ms. Decker. Vickei Donohue, VS, I&O, 24H, Jesus Vital Signs/I&O Vital Signs Date Time Temp Pulse Resp B/P (MAP) Pulse Ox O2 Delivery O2 Flow Rate FiO2 11/15/20 06:00 96.3 79 18 147/89 (108) 99 Room Air I&O- Last 24 Hours up to 6 AM0 11/15/20 06:00 Intake Total 1374 ml Output Total 1350 ml Balance 24 ml Laboratory Data 24H LABS Laboratory Tests 2 11/14/20 11:07: Nucleated Red Blood Cells % (auto) 0.0, Prothrombin Time 12.1, Prothromb Time International Ratio 0.88, Activated Partial Thromboplast Time 22.9L, Fibrinogen 558H, Anion Gap 3L, Glomerular Filtration Rate > 60.0, Calcium Level 7.3L, Total Bilirubin 0.4, Aspartate Amino Transf (AST/SGOT) 1445H, Alanine Aminotransferase (ALT/SGPT) 1765H, Alkaline Phosphatase 146H, Total Protein 6.6, Albumin 3.0L, Albumin/Globulin Ratio 0.8L 11/14/20 11:08: 11/14/20 16:58: Nucleated Red Blood Cells % (auto) 0.0, Prothrombin Time 11.7L, Prothromb Time International Ratio 0.84, Activated Partial Thromboplast Time 24.6L, Fibrinogen 505H, Anion Gap 5L, Glomerular Filtration Rate > 60.0, Calcium Level 7.6L, Total Bilirubin 0.4, Aspartate Amino Transf (AST/SGOT) 1446H, Alanine Aminotransferase (ALT/SGPT) 1755H, Alkaline Phosphatase 141H, Total Protein 6.5, Albumin 3.0L, Albumin/Globulin Ratio 0.9L, Ammonia 16 11/14/20 23:38: Nucleated Red Blood Cells % (auto) 0.0, Prothrombin Time 12.2, Prothromb Time International Ratio 0.89, Activated Partial Thromboplast Time 25.3, Fibrinogen 453H, Anion Gap 8, Glomerular Filtration Rate > 60.0, Calcium Level 8.0L, Total Bilirubin 0.3, Aspartate Amino Transf (AST/SGOT) 1126H, Alanine Aminotransferase (ALT/SGPT) 1468H, Alkaline Phosphatase 147H, Total Protein 5.9L, Albumin 2.7L, Albumin/Globulin Ratio 0.8L 11/15/20 06:40: CBC/BMP Laboratory Tests 11/14/20 11:07 11/14/20 16:58 11/14/20 23:38 VICKIE DONOHUE DO Nov 15, 2020 07:24
[2020-11-15 07:30] LABS: INR 0.93; PROTHROMBIN TIME 12.7 SECONDS (12.5-14.3)
[2020-11-15 07:31] LABS: PARTIAL THROMBOPLASTIN TIME 26.7 SECONDS (24.2-38.5)
[2020-11-15 07:58] LABS: ALBUMIN 2.8 GM/DL (3.2-5.2); ALT/SGPT 1248 U/L (12-78); BILIRUBIN,TOTAL 0.2 MG/DL (0.2-1.0); BLOOD UREA NITROGEN 11 MG/DL (7-18); CALCIUM LEVEL 8.8 MG/DL (8.5-10.1); CARBON DIOXIDE LEVEL 28 MEQ/L (21-32); CHLORIDE LEVEL 107 MEQ/L (98-107); CREATININE FOR GFR 0.68 MG/DL (0.55-1.30); GLOMERULAR FILTRATION RATE > 60.0 (>60); GLUCOSE, FASTING 70 MG/DL (70-100); POTASSIUM SERUM 4.2 MEQ/L (3.5-5.1); SODIUM LEVEL 139 MEQ/L (136-145); TOTAL PROTEIN 6.2 GM/DL (6.4-8.2)
[2020-11-15] MEDS ORDERED: INFLUENZA QUADRIVALENT PF VACCINE 0.5ML SYRINGE IM ONE (09:00)
[2020-11-15] MEDS: DOCUSATE SODIUM 100MG CAPSULE PO SCH ×2 (09:52→20:36)
[2020-11-15] MEDS: MIRALAX *UNIT DOSE* 17GM PACKET PO SCH (09:53)
[2020-11-15] MEDS: PRENATAL VITAMINS CHEWABLE TABLET PO SCH (09:53)
[2020-11-15 19:53] LABS: HEMATOCRIT 34.4 % (36.0-47.0); HEMOGLOBIN 10.9 g/dl (12.0-15.5); MEAN CORPUSCULAR HEMOGLOBIN 29.6 pg (27.0-33.0); MEAN CORPUSCULAR HGB CONC 31.7 g/dl (32.0-36.5); MEAN CORPUSCULAR VOLUME 93.5 fl (80.0-96.0); PLATELET COUNT, AUTOMATED 321 10^3/uL (150-450); RED BLOOD COUNT 3.68 10^6/uL (4.00-5.40); WHITE BLOOD COUNT 8.6 10^3/uL (4.0-10.0)
[2020-11-15 20:13] LABS: INR 0.9; PROTHROMBIN TIME 12.3 SECONDS (12.5-14.3)
[2020-11-15 20:14] LABS: PARTIAL THROMBOPLASTIN TIME 26.4 SECONDS (24.2-38.5)
[2020-11-15 20:51] LABS: ALBUMIN 3.2 GM/DL (3.2-5.2); ALT/SGPT 1276 U/L (12-78); BILIRUBIN,TOTAL 0.2 MG/DL (0.2-1.0); BLOOD UREA NITROGEN 10 MG/DL (7-18); CALCIUM LEVEL 9.8 MG/DL (8.5-10.1); CARBON DIOXIDE LEVEL 27 MEQ/L (21-32); CHLORIDE LEVEL 106 MEQ/L (98-107); CREATININE FOR GFR 0.78 MG/DL (0.55-1.30); GLOMERULAR FILTRATION RATE > 60.0 (>60); GLUCOSE, FASTING 84 MG/DL (70-100); POTASSIUM SERUM 4.7 MEQ/L (3.5-5.1); SODIUM LEVEL 140 MEQ/L (136-145); TOTAL PROTEIN 6.8 GM/DL (6.4-8.2)
[2020-11-16 02:39] VITALS: BP 111/69
[2020-11-16 05:50] VITALS: BP 117/81
--- NOTE | 2020-11-16 06:33 | IPNPDOC ---
Progress Note Date of Service: Nov 16, 2020 Day#: 5 Progress Note Patient seen at bedside this morning. she is doing well, pain is well controlled just on motrin. she is ambulating, Tolerating PO diet. she denies any nausea, vomiting, abdominal pain. she is and her supply has come in. baby is in NICU as he is doing well. they seem to be bonding appropriately. on PPD1 patient developed transaminitis and was diagnosed with possible AFLD Vs. Pre e w/ SF. she is S/P 24hrs of mags and her vitals have been normal. she denies any s/so of pre e, anemia or infection. Her LFT has remained stable over the last 24 hrs. labs are now q12hrs. GI had ordered a send out lab, but the consent is missing a signature. the doctor who ordered the lab is on out of office until thursday. discussed with patient that she may need to get the lab done outpatient. Her OBJECTIVE: VITAL SIGNS: Within normal limits, afebrile. Alert and oriented times three. Normal work of breathing Heart rate: Regular rate and rhythm Abdomen: Fundus firm at U-2. Soft, NTTP. ASSESSMENT:25 yo S/P @ 32 weeks complicated by Possible AFLD vs. Pre e with severe features. Critical care and GI were consulted and have been involved in her care. she clinically looks very well. her labs has remained stable over the last 24 hrs. coags and platelets are normal. Vitals within normal limits, afebrile, hemodynamically stable with no evidence of infection. PLAN: 1. Will continue to monitor today and trend her labs two more time( this morning and tonight), ordered Q12HRS. if they continue to be stable- can consider discharge tomorrow morning. Will touch base with GI for F/u plan for the patient. 2. Motrin only for pain. No Tylenol 3. Encourage breast feeding and ambulation. 4. Nexplanon for Contraceptions 5. Routine PP visit in 6 weeks in clinic. 6. Discussed return precautions at length. VS, I&O, 24H, Fishbone Vital Signs/I&O Vital Signs Date Time Temp Pulse Resp B/P (MAP) Pulse Ox O2 Delivery O2 Flow Rate FiO2 11/16/20 05:50 98.1 90 20 117/81 (93) 99 11/15/20 22:30 Room Air Laboratory Data 24H LABS Laboratory Tests 2 11/15/20 06:40: Nucleated Red Blood Cells % (auto) 0.0, Prothrombin Time 12.7, Prothromb Time International Ratio 0.93, Activated Partial Thromboplast Time 26.7, Fibrinogen 436, Anion Gap 4L, Glomerular Filtration Rate > 60.0, Calcium Level 8.8, Total Bilirubin 0.2, Aspartate Amino Transf (AST/SGOT) 899H, Alanine Aminotransferase (ALT/SGPT) 1248H, Alkaline Phosphatase 127H, Total Protein 6.2L, Albumin 2.8L, Albumin/Globulin Ratio 0.8L 11/15/20 19:26: Nucleated Red Blood Cells % (auto) 0.0, Prothrombin Time 12.3, Prothromb Time International Ratio 0.90, Activated Partial Thromboplast Time 26.4, Anion Gap 7L, Glomerular Filtration Rate > 60.0, Calcium Level 9.8, Total Bilirubin 0.2, Aspartate Amino Transf (AST/SGOT) 802H, Alanine Aminotransferase (ALT/SGPT) 1276H, Alkaline Phosphatase 160H, Total Protein 6.8, Albumin 3.2, Albumin/Globulin Ratio 0.9L CBC/BMP Laboratory Tests 11/15/20 06:40 11/15/20 19:26 VIPUL MARSHALL MD Nov 16, 2020 06:33
[2020-11-16 07:46] LABS: HEMATOCRIT 35.3 % (36.0-47.0); HEMOGLOBIN 11.6 g/dl (12.0-15.5); MEAN CORPUSCULAR HEMOGLOBIN 30.5 pg (27.0-33.0); MEAN CORPUSCULAR HGB CONC 32.9 g/dl (32.0-36.5); MEAN CORPUSCULAR VOLUME 92.9 fl (80.0-96.0); PLATELET COUNT, AUTOMATED 302 10^3/uL (150-450); WHITE BLOOD COUNT 8.9 10^3/uL (4.0-10.0)
[2020-11-16 08:03] LABS: INR 0.88; PROTHROMBIN TIME 12.1 SECONDS (12.5-14.3)
[2020-11-16 08:04] LABS: PARTIAL THROMBOPLASTIN TIME 28.1 SECONDS (24.2-38.5)
[2020-11-16 08:16] LABS: ALBUMIN 3.2 GM/DL (3.2-5.2); ALT/SGPT 1025 U/L (12-78); BILIRUBIN,TOTAL 0.4 MG/DL (0.2-1.0); BLOOD UREA NITROGEN 12 MG/DL (7-18); CALCIUM LEVEL 10.2 MG/DL (8.5-10.1); CARBON DIOXIDE LEVEL 27 MEQ/L (21-32); CHLORIDE LEVEL 105 MEQ/L (98-107); CREATININE FOR GFR 0.66 MG/DL (0.55-1.30); GLOMERULAR FILTRATION RATE > 60.0 (>60); GLUCOSE, FASTING 72 MG/DL (70-100); POTASSIUM SERUM 4.3 MEQ/L (3.5-5.1); SODIUM LEVEL 138 MEQ/L (136-145); TOTAL PROTEIN 6.6 GM/DL (6.4-8.2)
[2020-11-16] MEDS: DOCUSATE SODIUM 100MG CAPSULE PO SCH ×2 (09:00→21:00)
[2020-11-16] MEDS: MIRALAX *UNIT DOSE* 17GM PACKET PO SCH (09:00)
[2020-11-16 10:00] VITALS: BP 133/91
[2020-11-16] MEDS: PRENATAL VITAMINS CHEWABLE TABLET PO SCH (10:06)
[2020-11-16 18:00] VITALS: BP 131/91
[2020-11-16 20:03] LABS: HEMATOCRIT 33.8 % (36.0-47.0); HEMOGLOBIN 10.8 g/dl (12.0-15.5); MEAN CORPUSCULAR HEMOGLOBIN 29.8 pg (27.0-33.0); MEAN CORPUSCULAR VOLUME 93.1 fl (80.0-96.0); PLATELET COUNT, AUTOMATED 316 10^3/uL (150-450); RED BLOOD COUNT 3.63 10^6/uL (4.00-5.40); WHITE BLOOD COUNT 8.1 10^3/uL (4.0-10.0)
[2020-11-16 20:13] LABS: INR 0.91; PROTHROMBIN TIME 12.4 SECONDS (12.5-14.3)
[2020-11-16 20:14] LABS: PARTIAL THROMBOPLASTIN TIME 27.5 SECONDS (24.2-38.5)
[2020-11-16 20:34] LABS: ALBUMIN 3.3 GM/DL (3.2-5.2); ALT/SGPT 896 U/L (12-78); BILIRUBIN,TOTAL 0.3 MG/DL (0.2-1.0); BLOOD UREA NITROGEN 14 MG/DL (7-18); CALCIUM LEVEL 10.1 MG/DL (8.5-10.1); CARBON DIOXIDE LEVEL 27 MEQ/L (21-32); CHLORIDE LEVEL 103 MEQ/L (98-107); CREATININE FOR GFR 0.77 MG/DL (0.55-1.30); GLOMERULAR FILTRATION RATE > 60.0 (>60); GLUCOSE, FASTING 111 MG/DL (70-100); POTASSIUM SERUM 4.1 MEQ/L (3.5-5.1); SODIUM LEVEL 139 MEQ/L (136-145); TOTAL PROTEIN 6.8 GM/DL (6.4-8.2)
[2020-11-16 22:00] VITALS: BP 138/98
[2020-11-17 02:00] VITALS: BP 116/76
[2020-11-17 06:00] VITALS: BP 128/88
[2020-11-17 08:19] LABS: HEMATOCRIT 33.4 % (36.0-47.0); HEMOGLOBIN 10.8 g/dl (12.0-15.5); MEAN CORPUSCULAR HEMOGLOBIN 30.3 pg (27.0-33.0); MEAN CORPUSCULAR HGB CONC 32.3 g/dl (32.0-36.5); MEAN CORPUSCULAR VOLUME 93.6 fl (80.0-96.0); PLATELET COUNT, AUTOMATED 308 10^3/uL (150-450); RED BLOOD COUNT 3.57 10^6/uL (4.00-5.40); WHITE BLOOD COUNT 6.9 10^3/uL (4.0-10.0)
--- NOTE | 2020-11-17 08:33 | OBDS ---
[facility] Obstetrical Discharge Sum. Obstetrical Discharge Summary Date: Nov 17, 2020 Time: 09:00 : 1 Term: 0 Pre-term: 1 Abortions: 0 Livin VDRL: Non-Reactive Rh: Positive Rubella: Immune Labor ADMITTED 32 WEEKS 6 DAYS SROM CLEAR FLUID WITH CONTRACTIONS . GBS NEGATIVE STEROID COMPLETE SPONTANEOUS VAGINAL DELIVERY MALE 4 POUNDS 9 OZ. 2076 GRAMS 9/9 ADMITTED TO NICU. COMPLETE PLACENTA INTACT PERINEUM Infant Sex: Male Weight: pounds (4 POUNDS ), ounces (9 OZ), grams (2076 GRAMS) Episiotomy NONE A/P, Post Course List any complications Admission diagnosis: .SROM PRE TERM 32.6 WEEKS Discharge diagnosis: SPONTANEOUS VAGINAL DELIVERY ACUTE FATTY LIVER IN Condition at Discharge: STABLE Discharge Instructions: [Home/other] HOME MOTRIN BREAST FEEDING GI CONSULT THURSDAY NEXPLANON CONTROL 6 WEEK PP VISIT [facility] OB Activity: ATT Diet: OBED Medications: PICKED UP AT [facility] 6 WEEKS PP Follow-up: 6 WEEK PP Other: PATIENT ADMITTED 32.6 WEEKS SROM CONTRACTIONS GBS NEGATIVE STEROID COMPLETE NEURO COMPLETE IN LABOR DELIVERED MALE INFANT 4 LBS 9 OZ 2076 GRAMS IN NICU . POST HAD MID RANGE BLOOD PRESSURE INVESTIGATED FOR PRE E FOUND ELEVATED LIVER FUNCTION DIAGNOSED AFLD CONSULTED GI AND CRITICAL CARE . PLAN WAS MONITOR BLOOD WORK ADDED LABS TO REFLECT AFLD GENETIC BLOOD WORK CONSULT HEPATOLOGY AND IF NEEDED TRANSFER TO HIGHER LEVEL OF CARE . TODAY FEELS WELL NO ISSUES NO COMPLAINTS IN NICU FEEDING BABY . PLAN IS REPEAT BLOOD WORK TODAY. TRENDING DOWN MORE THAN 50% AND IF STABLE PLANS FOR DISCHARGE . FOLLOW UP [facility] OB 6 WEEKS Vital Signs Label Value Date Time Pulse 94 11/17/20 06 Patient Temperature 97.6 degrees F 11/17/20 06 Temperature Source Temporal 11/17/20599 Respiratory Rate 16 bpm 11/17/20599 Blood Pressure Assessment 128/88 (101) 11/17/20 06 Source Automatic Cuff (NIBP) Bedside Pulse Oximetry 99 % 11/17/20599 Item Value Date Time Sodium Level 139 MEQ/L 11/16/201927 Potassium Level 4.1 MEQ/L 11/16/201927 Carbon Dioxide Level 27 MEQ/L 11/16/201927 Chloride Level 103 MEQ/L 11/16/201927 Anion Gap 9 MEQ/L 11/16/20 192 Blood Urea Nitrogen 14 MG/DL 11/16/20 192 Creatinine 0.77 MG/DL 11/16/201927 Glomerular Filtration Rate > 60.0 11/16/20 192 Fasting Glucose 111 MG/DL H 11/16/20 1928 Calcium Level 10.1 MG/DL 11/16/20 192 Total Bilirubin 0.3 MG/DL 11/16/20 192 Aspartate Amino Transf (AST/SGOT) 461 U/L H 11/16/20 192 Alanine Aminotransferase (ALT/SGPT) 896 U/L H 11/16/20 192 Alkaline Phosphatase 162 U/L H 11/16/201927 Total Protein 6.8 GM/DL 11/16/20 192 Albumin 3.3 GM/DL 11/16/201927 Albumin/Globulin Ratio 0.9 L 11/16/20 192 Albumin/Globulin Ratio 0.9 L 11/16/20 0705 Albumin 3.2 GM/DL 11/16/20 0705 Total Protein 6.6 GM/DL 11/16/20 0705 Alkaline Phosphatase 158 U/L H 11/16/20 0705 Alanine Aminotransferase (ALT/SGPT) 1025 U/L H 11/16/20 0705 Aspartate Amino Transf (AST/SGOT) 595 U/L H 11/16/20 0705 Total Bilirubin 0.4 MG/DL # 11/16/20 0705 Calcium Level 10.2 MG/DL H 11/16/20 0705 Fasting Glucose 72 MG/DL 11/16/20 0705 Glomerular Filtration Rate > 60.0 11/16/20 0705 Blood Urea Nitrogen 12 MG/DL 11/16/20 0705 Creatinine 0.66 MG/DL 11/16/20 0705 Anion Gap 6 MEQ/L L 11/16/20 0705 Carbon Dioxide Level 27 MEQ/L 11/16/20 0705 Chloride Level 105 MEQ/L 11/16/20 0705 Potassium Level 4.3 MEQ/L 11/16/20 0705 Sodium Level 138 MEQ/L 11/16/20 0705 Sodium Level 140 MEQ/L 11/15/20 192 Potassium Level 4.7 MEQ/L 11/15/20 192 Chloride Level 106 MEQ/L 11/15/20 192 Carbon Dioxide Level 27 MEQ/L 12/17/20 1926 Anion Gap 7 MEQ/L L 11/15/20 1926 Blood Urea Nitrogen 10 MG/DL 11/15/20 1926 Creatinine 0.78 MG/DL 11/15/20 1926 Glomerular Filtration Rate > 60.0 11/15/20 1926 Fasting Glucose 84 MG/DL 11/15/20 1926 Calcium Level 9.8 MG/DL 11/15/20 1926 Total Bilirubin 0.2 MG/DL 11/15/20 1926 Aspartate Amino Transf (AST/SGOT) 802 U/L H 11/15/20 1926 Alanine Aminotransferase (ALT/SGPT) 1276 U/L H 11/15/20 1926 Alkaline Phosphatase 160 U/L H 11/15/20 1926 Total Protein 6.8 GM/DL 11/15/20 1926 Albumin 3.2 GM/DL 11/15/20 1926 Albumin/Globulin Ratio 0.9 L 11/15/20 1926 Albumin/Globulin Ratio 0.8 L 11/15/20 0640 Albumin 2.8 GM/DL L 11/15/20 0640 Total Protein 6.2 GM/DL L 11/15/20 0640 Alkaline Phosphatase 127 U/L H 11/15/20 0640 Alanine Aminotransferase (ALT/SGPT) 1248 U/L H 11/15/20 0640 Aspartate Amino Transf (AST/SGOT) 899 U/L H 11/15/20 0640 Total Bilirubin 0.2 MG/DL 11/15/20 0640 Calcium Level 8.8 MG/DL 11/15/20 0640 Fasting Glucose 70 MG/DL 11/15/20 0640 Glomerular Filtration Rate > 60.0 11/15/20 0640 Creatinine 0.68 MG/DL 11/15/20 0640 Blood Urea Nitrogen 11 MG/DL 11/15/20 0640 Anion Gap 4 MEQ/L L 11/15/20 0640 Carbon Dioxide Level 28 MEQ/L 11/15/20 0640 Chloride Level 107 MEQ/L 11/15/20 0640 Potassium Level 4.2 MEQ/L 11/15/20 0640 Sodium Level 139 MEQ/L 11/15/20 0640 Sodium Level 140 MEQ/L 11/14/20 2338 Potassium Level 4.7 MEQ/L 11/14/20 2338 Chloride Level 104 MEQ/L 11/14/20 2338 Anion Gap 8 MEQ/L 11/14/20 2338 Carbon Dioxide Level 28 MEQ/L 11/14/208 Blood Urea Nitrogen 11 MG/DL # 11/14/208 Creatinine 0.68 MG/DL 11/14/208 Glomerular Filtration Rate > 60.0 11/14/208 Fasting Glucose 74 MG/DL 11/14/208 Calcium Level 8.0 MG/DL L 11/14/208 Total Bilirubin 0.3 MG/DL 11/14/208 Aspartate Amino Transf (AST/SGOT) 1126 U/L H 11/14/208 Alanine Aminotransferase (ALT/SGPT) 1468 U/L H 11/14/208 Alkaline Phosphatase 147 U/L H 11/14/208 Total Protein 5.9 GM/DL L 11/14/208 Albumin 2.7 GM/DL L 11/14/208 Albumin/Globulin Ratio 0.8 L 11/14/208 Item Value Date Time Sodium Level 139 MEQ/L 11/16/208 Potassium Level 4.1 MEQ/L 11/16/208 Chloride Level 103 MEQ/L 11/16/208 Carbon Dioxide Level 27 MEQ/L 11/16/208 Anion Gap 9 MEQ/L 11/16/208 Blood Urea Nitrogen 14 MG/DL 11/16/208 Creatinine 0.77 MG/DL 11/16/208 Glomerular Filtration Rate > 60.0 11/16/208 Fasting Glucose 111 MG/DL H 11/16/208 Calcium Level 10.1 MG/DL 11/16/208 Total Bilirubin 0.3 MG/DL 11/16/201927 Aspartate Amino Transf (AST/SGOT) 461 U/L H 11/16/20 1928 Alanine Aminotransferase (ALT/SGPT) 896 U/L H 11/16/201927 Alkaline Phosphatase 162 U/L H 11/16/201927 Total Protein 6.8 GM/DL 11/16/20 1928 Albumin 3.3 GM/DL 11/16/20 1928 Albumin/Globulin Ratio 0.9 L 11/16/20 1928 Albumin/Globulin Ratio 0.9 L 11/16/20 0705 Albumin 3.2 GM/DL 11/16/20 0705 Total Protein 6.6 GM/DL 11/16/20 0705 Alkaline Phosphatase 158 U/L H 11/16/20 0705 Alanine Aminotransferase (ALT/SGPT) 1025 U/L H 11/16/20 0705 Aspartate Amino Transf (AST/SGOT) 595 U/L H 11/16/20 0705 Calcium Level 10.2 MG/DL H 11/16/20 0705 Total Bilirubin 0.4 MG/DL # 11/16/20 0705 Fasting Glucose 72 MG/DL 11/16/20 0705 Glomerular Filtration Rate > 60.0 11/16/20 0705 Creatinine 0.66 MG/DL 11/16/20 0705 Blood Urea Nitrogen 12 MG/DL 11/16/20 0705 Anion Gap 6 MEQ/L L 11/16/20 07 Chloride Level 105 MEQ/L 11/16/20 07 Sodium Level 138 MEQ/L 11/16/20 0705 Potassium Level 4.3 MEQ/L 11/16/20 0705 Carbon Dioxide Level 27 MEQ/L 11/16/20 0705 Sodium Level 140 MEQ/L 11/15/20 192 Potassium Level 4.7 MEQ/L 11/15/20 192 Chloride Level 106 MEQ/L 11/15/20 192 Carbon Dioxide Level 27 MEQ/L 11/15/201925 Anion Gap 7 MEQ/L L 11/15/20 192 Blood Urea Nitrogen 10 MG/DL 11/15/20 192 Creatinine 0.78 MG/DL 11/15/20 192 Glomerular Filtration Rate > 60.0 11/15/201925 Fasting Glucose 84 MG/DL 11/15/20 192 Calcium Level 9.8 MG/DL 11/15/20 192 Total Bilirubin 0.2 MG/DL 11/15/20 192 Aspartate Amino Transf (AST/SGOT) 802 U/L H 11/15/20 192 Alanine Aminotransferase (ALT/SGPT) 1276 U/L H 11/15/20 192 Alkaline Phosphatase 160 U/L H 11/15/201925 Total Protein 6.8 GM/DL 11/15/20 192 Albumin 3.2 GM/DL 11/15/20 192 Albumin/Globulin Ratio 0.9 L 11/15/20 1926 Albumin/Globulin Ratio 0.8 L 11/15/20 0640 Albumin 2.8 GM/DL L 11/15/20 0640 Total Protein 6.2 GM/DL L 11/15/20 0640 Alkaline Phosphatase 127 U/L H 11/15/20 0640 Alanine Aminotransferase (ALT/SGPT) 1248 U/L H 11/15/20 0640 Aspartate Amino Transf (AST/SGOT) 899 U/L H 11/15/20 0640 Total Bilirubin 0.2 MG/DL 11/15/20 0640 Calcium Level 8.8 MG/DL 11/15/20 0640 Fasting Glucose 70 MG/DL 11/15/20 0640 Creatinine 0.68 MG/DL 11/15/20 0640 Blood Urea Nitrogen 11 MG/DL 11/15/20 0640 Anion Gap 4 MEQ/L L 11/15/20 0640 Carbon Dioxide Level 28 MEQ/L 11/15/20 0640 Chloride Level 107 MEQ/L 11/15/20 0640 Sodium Level 139 MEQ/L 11/15/20 0640 Potassium Level 4.2 MEQ/L 11/15/20 0640 Sodium Level 140 MEQ/L 11/14/20 2338 Potassium Level 4.7 MEQ/L 11/14/20 2338 Chloride Level 104 MEQ/L 11/14/20 2338 Carbon Dioxide Level 28 MEQ/L 11/14/20 2338 Anion Gap 8 MEQ/L 11/14/20 2338 Blood Urea Nitrogen 11 MG/DL # 11/14/20 2338 Creatinine 0.68 MG/DL 11/14/20 2338 Glomerular Filtration Rate > 60.0 11/14/208 Fasting Glucose 74 MG/DL 11/14/20 2338 Calcium Level 8.0 MG/DL L 11/14/20 2338 Total Bilirubin 0.3 MG/DL 11/14/20 2338 Aspartate Amino Transf (AST/SGOT) 1126 U/L H 11/14/20 2338 Alanine Aminotransferase (ALT/SGPT) 1468 U/L H 11/14/20 2338 Alkaline Phosphatase 147 U/L H 11/14/208 Total Protein 5.9 GM/DL L 11/14/20 2338 Albumin 2.7 GM/DL L 11/14/20 2338 Albumin/Globulin Ratio 0.8 L 11/14/20 2338 Item Value Date Time Prothrombin Time 12.4 SECONDS 11/16/20 1928 Prothromb Time International Ratio 0.91 11/16/20 1928 Activated Partial Thromboplast Time 27.5 SECONDS 11/16/20 1928 Prothrombin Time 12.1 SECONDS 11/16/20 0705 Prothromb Time International Ratio 0.88 11/16/20 0705 Activated Partial Thromboplast Time 28.1 SECONDS 11/16/20 0705 Prothrombin Time 12.3 SECONDS 11/15/20 1926 Prothromb Time International Ratio 0.90 11/15/20 1926 Activated Partial Thromboplast Time 26.4 SECONDS 11/15/20 1926 Prothrombin Time 12.7 SECONDS 11/15/20 0640 Prothromb Time International Ratio 0.93 11/15/20 0640 Activated Partial Thromboplast Time 26.7 SECONDS 11/15/20 0640 Fibrinogen 436 MG/DL 11/15/20 0640 Prothrombin Time 12.2 SECONDS 11/14/20 2338 Prothromb Time International Ratio 0.89 11/14/20 2338 Activated Partial Thromboplast Time 25.3 SECONDS 11/14/20 2338 Fibrinogen 453 MG/DL H 11/14/20 2338 Jimbo Houser MD Nov 17, 2020 08:07
[2020-11-17 08:38] LABS: INR 0.89; PARTIAL THROMBOPLASTIN TIME 27.9 SECONDS (24.2-38.5); PROTHROMBIN TIME 12.2 SECONDS (12.5-14.3)
[2020-11-17 08:51] LABS: BLOOD UREA NITROGEN 12 MG/DL (7-18); CREATININE FOR GFR 0.64 MG/DL (0.55-1.30); GLOMERULAR FILTRATION RATE > 60.0 (>60); GLUCOSE, FASTING 72 MG/DL (70-100); SODIUM LEVEL 138 MEQ/L (136-145)
[2020-11-17 08:52] LABS: ALBUMIN 3.1 GM/DL (3.2-5.2); ALT/SGPT 772 U/L (12-78); BILIRUBIN,TOTAL 0.4 MG/DL (0.2-1.0); CALCIUM LEVEL 9.1 MG/DL (8.5-10.1); CARBON DIOXIDE LEVEL 28 MEQ/L (21-32); CHLORIDE LEVEL 104 MEQ/L (98-107); POTASSIUM SERUM 4.3 MEQ/L (3.5-5.1); TOTAL PROTEIN 5.9 GM/DL (6.4-8.2)
[2020-11-17] MEDS ORDERED: IBUP-1022 PO (08:55)
[2020-11-17] MEDS ORDERED: DOK1CAP7 PO (08:55)
[2020-11-17] MEDS ORDERED: INFLUENZA QUADRIVALENT PF VACCINE 0.5ML SYRINGE IM ONE (09:00)
[2020-11-17] MEDS: DOCUSATE SODIUM 100MG CAPSULE PO SCH (09:04)
[2020-11-17] MEDS: MIRALAX *UNIT DOSE* 17GM PACKET PO SCH (09:04)
[2020-11-17] MEDS: PRENATAL VITAMINS CHEWABLE TABLET PO SCH (09:05)
[2020-11-17 10:00] VITALS: BP 136/86
== END 2020-11-17 11:50 | disposition home or self-care (01) | DRG 806 ==
LOC: M LDO 10:53 → M LDI 11:29 → M OBS 16:34
PROVIDERS: ADMIT Registered Nurse Maternal Newborn; ATTEND Registered Nurse Maternal Newborn
PROC: 10E0XZZ Delivery of Products of Conception, External Approach (ICD-10-PCS; principal; 2020-11-12)
DX: O42.013 Preterm premature rupture of membranes, onset of labor within 24 hours of rupture, third trimester (principal); Z37.0 Single live birth; O26.62 Liver and biliary tract disorders in childbirth; Z3A.32 32 weeks gestation of pregnancy; O14.24 HELLP syndrome, complicating childbirth; K76.0 Fatty (change of) liver, not elsewhere classified; Z20.828 Contact with and (suspected) exposure to other viral communicable diseases

== ENCOUNTER 2021-01-05 17:31 | Emergency (ER) | payer OTHER ==
[~2021-01-05] VITALS: Ht 162.6 cm; Wt 50.0 kg
[~2021-01-05 17:31] MED LIST changes: +DOK1CAP7 PO; +IBUP-1022 PO; -PRENATAL VITAMINS CHEWABLE TABLET PO SCH
[2021-01-05] MEDS ORDERED: ONDANSETRON 4MG/2ML VIAL IV ONE (18:00)
[2021-01-05] MEDS ORDERED: MORPHINE 2 MG/ML 1ML VIAL (J2270) IV ONE (18:00)
[2021-01-05 18:42] LABS: BASO % 0.6 % (0.0-1.0); EOS # 0.1 10^3/uL (0.0-0.5); EOS % 2.2 % (0.0-3.0); HEMATOCRIT 39.7 % (36.0-47.0); HEMOGLOBIN 13.4 g/dl (12.0-15.5); LYMPH # 2.4 10^3/uL (1.5-5.0); LYMPH % 44.9 % (24.0-44.0); MEAN CORPUSCULAR HEMOGLOBIN 30.4 pg (27.0-33.0); MEAN CORPUSCULAR HGB CONC 33.8 g/dl (32.0-36.5); MONO # 0.5 10^3/uL (0.0-0.8); MONO % 9.7 % (0.0-5.0); NEUTROPHILS # 2.3 10^3/uL (1.5-8.5); NEUTROPHILS % 42.4 % (36.0-66.0); PLATELET COUNT, AUTOMATED 298 10^3/uL (150-450); RED BLOOD COUNT 4.41 10^6/uL (4.00-5.40); WHITE BLOOD COUNT 5.4 10^3/uL (4.0-10.0)
[2021-01-05 18:56] LABS: ALBUMIN 4.3 GM/DL (3.2-5.2); ALT/SGPT 31 U/L (12-78); AMYLASE 108 U/L (25-115); BILIRUBIN,DIRECT 0.2 MG/DL (0.0-0.2); BILIRUBIN,TOTAL 0.4 MG/DL (0.2-1.0); CPK CREATINE PHOSPHOKINASE 330 U/L (26-192); LIPASE 175 U/L (73-393); TOTAL PROTEIN 7.5 GM/DL (6.4-8.2); TROPONIN I < 0.02 NG/ML (< 0.10)
[2021-01-05 18:57] LABS: INR 0.96
[2021-01-05 18:58] LABS: PARTIAL THROMBOPLASTIN TIME 29.9 SECONDS (24.2-38.5)
--- NOTE | 2021-01-05 19:23 | REPVR ---
PROCEDURE INFORMATION: Exam: CT Head Without Contrast Exam date and time: 01/05/2021 6:44 PM Age: 25 years old Clinical indication: Pain; Headache TECHNIQUE: Imaging protocol: Computed tomography of the head without contrast. Radiation optimization: All CT scans at this facility use at least one of these dose optimization techniques: automated exposure control; mA and/or kV adjustment per patient size (includes targeted exams where dose is matched to clinical indication); or iterative reconstruction. COMPARISON: No relevant prior studies available. FINDINGS: Brain: No intracranial mass, mass effect or midline shift. No acute intracranial hemorrhage. No CT evidence of acute cortical infarct. Ventricles, cisterns, and sulci are normal in size for age. Bones/joints: No calvarial fracture or destructive process. Paranasal sinuses: Imaged paranasal sinuses are normally aerated. Mastoid air cells: Mastoid air cells and middle ear structures are normally aerated. Orbital cavity: Imaged orbits are unremarkable. Soft tissues: No focal extracranial soft tissue swelling. IMPRESSION: No acute or concerning focal intracranial abnormality. Electronically signed by: Shaji Pierce On 01/05/2021 19:23:48 PM
[2021-01-05] MEDS ORDERED: ACETAMINOPHEN 325 MG TAB PO ONE (19:30)
--- NOTE | 2021-01-05 19:31 | REP ---
INDICATION: HTN, PENDING POC HCG. COMPARISON: None. TECHNIQUE: SINGLE PORTABLE AP VIEW OF THE CHEST WAS PERFORMED. FINDINGS: THERE IS NO ACUTE INFILTRATE OR PULMONARY EDEMA. LUNGS ARE CLEAR. HEART IS NOT SIGNIFICANTLY ENLARGED. MEDIASTINAL SILHOUETTE IS UNREMARKABLE. THE VISUALIZED OSSEOUS STRUCTURES ARE INTACT. IMPRESSION: NO ACUTE PULMONARY DISEASE. <Electronically signed by Demetris Quiroz > 01/05/21 [id number]
[2021-01-05 20:22] LABS: D-DIMER QUANT 610.47 ng/ml (<500)
[2021-01-05] MEDS ORDERED: ISOVUE-370 76% 100ML VIAL As Ordered ONE (20:31)
--- NOTE | 2021-01-05 20:48 | REPVR ---
PROCEDURE INFORMATION: Exam: CT Angiography Chest With Contrast Exam date and time: 01/05/2021 8:34 PM Age: 25 years old Clinical indication: Pain and abnormal findings; Abnormal diagnostic tests; Elevated d-dimer; Chest pain; Additional info: Chest pain elevated dimer R/O pe TECHNIQUE: Imaging protocol: Computed tomographic angiography of the chest with contrast. 3D rendering (Not supervised by radiologist): MIP and/or 3D reconstructed images were created by the technologist. Radiation optimization: All CT scans at this facility use at least one of these dose optimization techniques: automated exposure control; mA and/or kV adjustment per patient size (includes targeted exams where dose is matched to clinical indication); or iterative reconstruction. Contrast material: ISOVUE 370; Contrast volume: 75 ml; Contrast route: INTRAVENOUS (IV); COMPARISON: OR Chest, 1 view 01/05/2021 6:59 PM FINDINGS: Pulmonary arteries: No focal pulmonary artery filling defect to suggest acute pulmonary embolus. Aorta: No thoracic aortic aneurysm or dissection. Lungs: Pulmonary vascular/interstitial pattern does not suggest active pulmonary edema. No suspicious lung mass or air space process. No central endobronchial lesion. Pleural spaces: No pleural effusion or pneumothorax. Heart: No overt cardiac enlargement or abnormal volume of pericardial fluid. Mediastinal space: Residual thymic tissue is present in the anterior mediastinum. Lymph nodes: No enlarged mediastinal lymph nodes. No enlarged mediastinal lymph nodes. Bones/joints: Bony structures show no acute fracture or destructive process. Soft tissues: No asymmetric abnormality of the extrathoracic soft tissues. Other findings: Limited visualization of upper abdomen shows no concerning finding. IMPRESSION: 1. No evidence of acute pulmonary embolus. 2. No other acute or concerning focal intrathoracic abnormality. Electronically signed by: Shaji Pierce On 01/05/2021 20:47:48 PM
[2021-01-05 21:57] VITALS: BP 158/90
--- NOTE | 2021-01-06 06:29 | ECGEPIP ---
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
== END 2021-01-05 21:59 | disposition home or self-care (01) ==
LOC: EDBD 17:31 → M ED 17:31
DX: R51.9 Headache, unspecified (principal); R10.11 Right upper quadrant pain; I10 Essential (primary) hypertension; R07.89 Other chest pain; Z79.899 Other long term (current) drug therapy
CPT/HCPCS: 70450; 71045; 71275; 80047; 80076; 81001; 82150; 82550; 82553; 83690; 84484; 84702; 85025; 85379; 85610; 85730; 93005; 93041; 96374; 96375; 99285; J2270; J2405; Q9967

== ENCOUNTER 2021-04-15 09:00 | Inpatient (IN) | payer OTHER ==
[~2021-04-15] VITALS: Ht 162.6 cm; Wt 48.2 kg
[2021-04-15 09:43] LABS: HEMATOCRIT 41.3 % (36.0-47.0); HEMOGLOBIN 13.7 g/dl (12.0-15.5); MEAN CORPUSCULAR HEMOGLOBIN 29.3 pg (27.0-33.0); MEAN CORPUSCULAR HGB CONC 33.2 g/dl (32.0-36.5); MEAN CORPUSCULAR VOLUME 88.4 fl (80.0-96.0); PLATELET COUNT, AUTOMATED 327 10^3/uL (150-450); RED BLOOD COUNT 4.67 10^6/uL (4.00-5.40); WHITE BLOOD COUNT 6.8 10^3/uL (4.0-10.0)
[2021-04-15 10:20] LABS: HCG, SERUM QUALITATIVE NEGATIVE (NEGATIVE)
[2021-04-15 10:41] LABS: ACETAMINOPHEN LEVEL < 2.0 UG/ML (10.0-30.0); ALBUMIN 4.6 GM/DL (3.2-5.2); ALT/SGPT 37 U/L (12-78); BILIRUBIN,DIRECT 0.5 MG/DL (0.0-0.2); BILIRUBIN,TOTAL 2.6 MG/DL (0.2-1.0); BLOOD UREA NITROGEN 13 MG/DL (7-18); CALCIUM LEVEL 9.6 MG/DL (8.5-10.1); CARBON DIOXIDE LEVEL 22 MEQ/L (21-32); CHLORIDE LEVEL 106 MEQ/L (98-107); CREATININE FOR GFR 1.19 MG/DL (0.55-1.30); ETHYL ALCOHOL (ETHANOL) < 0.003 % (0.000-0.010); GLOMERULAR FILTRATION RATE > 60.0 (>60); GLUCOSE, FASTING 153 MG/DL (70-100); POTASSIUM SERUM 3.5 MEQ/L (3.5-5.1); SALICYLATE LEVEL < 1.7 MG/DL (5.0-30.0); SODIUM LEVEL 140 MEQ/L (136-145); THYROID STIMULATING HORMONE 0.659 uIU/ML (0.358-3.740); TOTAL PROTEIN 8.1 GM/DL (6.4-8.2)
[2021-04-15 11:09] LABS: AMPHETAMINES LEVEL URINE NEGATIVE (NEGATIVE); BARBITURATES URINE NEGATIVE (NEGATIVE); BENZODIAZEPINES URINE NEGATIVE (NEGATIVE); CANNABINOIDS URINE NEGATIVE (NEGATIVE); COCAINE METABOLITE URINE NEGATIVE (NEGATIVE); METHADONE URINE NEGATIVE (NEGATIVE); OPIATES URINE NEGATIVE (NEGATIVE); PHENCYCLIDINE URINE NEGATIVE (NEGATIVE)
[2021-04-15] MEDS ORDERED: MOM 30ML SUSPENSION UDC PO PRN (13:40)
[2021-04-15] MEDS ORDERED: MAALOX 30 ML SUSP *UDC PO PRN (13:40)
[2021-04-15 18:42] VITALS: BP 153/95
[2021-04-15] MEDS: ACETAMINOPHEN TAB 650MG DOSE (2X325MG) PO PRN (20:24)
[2021-04-15] MEDS: traZODone 50 MG TAB PO PRN (20:24)
[2021-04-16 06:50] VITALS: BP 130/75
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
[2021-04-16] MEDS ORDERED: hydrOXYzine 25 MG TAB PO PRN (14:25)
[2021-04-16] MEDS ORDERED: SERTRALINE HCL 25 MG TABLET PO ONE (14:45)
[2021-04-16 16:16] VITALS: BP 154/102
[2021-04-16] MEDS ORDERED: amLODIPine 5 MG TAB PO ONE (17:25)
[2021-04-16] MEDS: ONDANSETRON 4 MG TAB PO PRN (17:41)
[2021-04-16] MEDS: traZODone 50 MG TAB PO PRN (20:29)
[2021-04-16] MEDS: ACETAMINOPHEN TAB 650MG DOSE (2X325MG) PO PRN (20:30)
[2021-04-17 06:35] VITALS: BP 132/89
[2021-04-17] MEDS ORDERED: amLODIPine 5 MG TAB PO SCH (09:00)
[2021-04-17] MEDS ORDERED: SERTRALINE HCL 50 MG TAB PO SCH (09:00)
[2021-04-17] MEDS ORDERED: AMLO1TAB24 PO (09:03)
[2021-04-17] MEDS ORDERED: ONDA-83 PO (09:03)
[2021-04-17] MEDS ORDERED: SERT50TA29 PO (09:03)
[2021-04-17 09:49] VITALS: BP 132/89
[2021-04-17] MEDS: ONDANSETRON 4 MG TAB PO PRN (09:49)
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
== END 2021-04-17 10:30 | disposition home or self-care (01) | DRG 885 ==
LOC: M ED 09:00 → M ED INP 13:38 → M PSY 17:48
PROVIDERS: ADMIT Psychiatry & Neurology Psychiatry; ATTEND Psychiatry & Neurology Psychiatry
DX: F32.1 Major depressive disorder, single episode, moderate (principal); R45.851 Suicidal ideations; F53.0 Postpartum depression; R03.0 Elevated blood-pressure reading, without diagnosis of hypertension; Z81.1 Family history of alcohol abuse and dependence; Z63.4 Disappearance and death of family member; F17.290 Nicotine dependence, other tobacco product, uncomplicated; Z62.810 Personal history of physical and sexual abuse in childhood; Z20.822 Contact with and (suspected) exposure to COVID-19

== ENCOUNTER → 2021-05-27 | Outpatient (CLI) | payer OTHER, SELFPAY ==
[~2021-05-27] MED LIST changes: +AMLO1TAB24 PO; +OMEP40CA4 PO; -OMEP40CA97 PO; +ONDA-83 PO; +SERT-141 PO; +SERT50TA29 PO
[2021-05-27 12:13] LABS: BASO % 0.3 % (0.0-1.0); EOS % 0.6 % (0.0-3.0); HEMOGLOBIN 13.3 g/dl (12.0-15.5); LYMPH % 30.6 % (24.0-44.0); MEAN CORPUSCULAR HEMOGLOBIN 29.6 pg (27.0-33.0); MEAN CORPUSCULAR HGB CONC 32.4 g/dl (32.0-36.5); MEAN CORPUSCULAR VOLUME 91.1 fl (80.0-96.0); MONO # 0.5 10^3/uL (0.0-0.8); MONO % 16.2 % (2.0-8.0); NEUTROPHILS # 1.6 10^3/uL (1.5-8.5); NEUTROPHILS % 52.3 % (36.0-66.0); PLATELET COUNT, AUTOMATED 253 10^3/uL (150-450); WHITE BLOOD COUNT 3.1 10^3/uL (4.0-10.0)
[2021-05-27 12:23] LABS: INR 1.02; PARTIAL THROMBOPLASTIN TIME 32.8 SECONDS (24.2-38.5); PROTHROMBIN TIME 13.6 SECONDS (12.5-14.3)
[2021-05-27 12:47] LABS: ALT/SGPT 24 U/L (12-78); BLOOD UREA NITROGEN 11 MG/DL (7-18); CREATININE FOR GFR 0.79 MG/DL (0.55-1.30); GLOMERULAR FILTRATION RATE > 60.0 (>60)
[2021-05-27 12:48] LABS: ALBUMIN 4.3 GM/DL (3.2-5.2); BILIRUBIN,DIRECT 0.1 MG/DL (0.0-0.2); BILIRUBIN,TOTAL 0.5 MG/DL (0.2-1.0); TOTAL PROTEIN 7.8 GM/DL (6.4-8.2)
== END ==
LOC: M LAB 11:27
PROVIDERS: ATTEND Internal Medicine Gastroenterology
DX: O26.613 Liver and biliary tract disorders in pregnancy, third trimester (principal)